=== PATIENT | female | born 1970 | race Caucasian/White ===

== ENCOUNTER 2017-04-06 14:59 | Inpatient (IN) | payer OTHER ==
[~2017-04-06] VITALS: Ht 162.6 cm; Wt 76.8 kg
[2017-04-06] MEDS: AMIODARONE HCL 150 MG/3 ML VIAL ONE ×2 (15:01→15:11)
[2017-04-06 15:02] VITALS: BP 142/75; PULSE 97; RESP 20; TEMP 98.2; O2SAT 98
[2017-04-06] MEDS ORDERED: MULTTAB67 PO (15:08)
[2017-04-06] MEDS ORDERED: AMIODARONE INJ 900 MG in D5W 500 ML (EXCEL BAG) 482 ML IV SCH (15:15)
[2017-04-06] MEDS ORDERED: AMIODARONE INJ 150 MG in DEXTROSE 5% IN WATER 100ML INJ 97 ML IV ONE ×2 (15:15)
[2017-04-06] MEDS ORDERED: AMIODARONE INJ 450 MG in DEXTROSE 5% IN WATE(EXCEL) INJ 241 ML IV SCH ×2 (15:30)
--- NOTE | 2017-04-06 15:46 | RADRPT ---
EXAM DATE/TIME: 04/06/2017 15:39 [place] COMPARISON: No previous studies available for comparison. INDICATIONS : Heart palpitations MEDICAL HISTORY : None. SURGICAL HISTORY : None. ENCOUNTER: Initial ACUITY: 1 day PAIN SCORE: 0/10 LOCATION: Bilateral chest FINDINGS: A single view of the chest demonstrates the lungs to be symmetrically aerated without evidence of mas s, infiltrate or effusion. The cardiomediastinal contours are unremarkable. Osseous structures are intact. CONCLUSION: No acute disease. Murray Stevens MD FACR on April 06, 2017 at 15:43 Board Certified Radiologist. This report was verified electronically.
[2017-04-06 15:47] VITALS: BP 119/84; PULSE 70; RESP 20; O2SAT 98
[2017-04-06] MEDS: SODIUM CHLOR 0.9% 1000 ML INJ 1,000 ML IV SCH (15:53)
[2017-04-06 16:01] LABS: AUTOMATED NEUTROPHIL # 4.9 TH/MM3 (1.8-7.7); BASOPHIL % 0.1 % (0.0-2.0); EOSINOPHIL % 0.2 % (0.0-4.0); HEMATOCRIT 38.3 % (35.0-46.0); HEMO FLAGS DIFF FINAL; LYMPH % 19.6 % (9.0-44.0); LYMPHOCYTE # 1.3 TH/MM3 (1.0-4.8); MEAN CELL VOLUME 91.2 FL (80.0-100.0); MEAN CORPUSCULAR HEMOGLOBIN 31.2 PG (27.0-34.0); MEAN CORPUSCULAR HGB CONC 34.2 % (32.0-36.0); MONO % 4.7 % (0.0-8.0); NEUT % 75.4 % (16.0-70.0); PLATELET COUNT 190 TH/MM3 (150-450); RED CELL DISTRIBUTION WIDTH 12.6 % (11.6-17.2); WHITE BLOOD COUNT 6.4 TH/MM3 (4.0-11.0)
[2017-04-06 16:14] LABS: ALT (GPT) 27 U/L (10-53); ANION GAP 7 MEQ/L (5-15); AST (GOT) 16 U/L (15-37); BICARBONATE 25.2 MEQ/L (21.0-32.0); BLOOD UREA NITROGEN 10 MG/DL (7-18); CHLORIDE 108 MEQ/L (98-107); GLOMERULAR FILTRATION RATE 110 ML/MIN (>89); POTASSIUM 3.6 MEQ/L (3.5-5.1); SODIUM (NA) 140 MEQ/L (136-145)
[2017-04-06 16:15] LABS: APTT (PATIENT) 25.8 SEC (24.3-30.1); PROTHROMBIN TIME - PATIENT 11.1 SEC (9.8-11.6)
[2017-04-06 16:23] LABS: ALKALINE PHOSPHATASE 50 U/L (45-117); TOTAL BILIRUBIN ADULT 0.6 MG/DL (0.2-1.0)
[2017-04-06 16:57] LABS: CREATINE KINASE 55 U/L (26-192)
[2017-04-06 17:14] VITALS: BP 126/82; PULSE 76; RESP 20; O2SAT 97
--- NOTE | 2017-04-06 17:18 | PD ---
HPI Chief Complaint: Cardiac Complaint Time Seen by Provider: 15:02 Travel History International Travel<30 days: No Contact w/Intl Traveler<30days: No Traveled to known affect area: No History of Present Illness HPI 46 year female complains of palpitation and dizziness. Patient states that the symptoms started about 2 weeks ago. Patient was seen by personal physician and referred to historical guide Dr. Kai Brown. Dr. Brown order an event recording for the patient. Dr. Brown has not seen the patient. Dr. Kai Brown was interrogating the event recording and advised to come to ED for evaluation. Patient states that she has intermittent palpitations and dizziness for the past 2 weeks however worse for the past 2 days. Patient states that she was very dizzy today associated with the palpation. EMS was called. Patient was brought to ED for evaluation. Patient had runs of V. tach on the way to ED. Patient states that she has severe dizziness with the V. tach episodes. Patient denies any thyroid problem. Patient denies any history of CAD in the past. PFSH Past Medical History ?: Not LMP: 03/29/17 Social History Alcohol Use: Yes Tobacco Use: No Substance Use: No Allergies-Medications (Allergen,Severity, Reaction): Coded Allergies: No Known Allergies (Unverified , 04/06/17) Reported Meds & Prescriptions Reported Meds & Active Scripts Active Reported Multiple Vitamin 1 Tab 1 Tab PO DAILY Review of Systems General / Constitutional: No: Fever Eyes: No: Visual changes HENT: Positive: Lightheadedness, No: Headaches Cardiovascular: Positive: Palpitations, No: Chest Pain or Discomfort Respiratory: No: Shortness of Breath Gastrointestinal: No: Abdominal Pain Genitourinary: No: Dysuria Musculoskeletal: No: Pain Skin: No Rash Neurologic: No: Weakness Psychiatric: No: Depression Endocrine: No: Polydipsia Hematologic/Lymphatic: No: Easy Bruising Physical Exam Narrative GENERAL: Well-nourished, well-developed patient. SKIN: Focused skin assessment warm/dry. HEAD: Normocephalic. EYES: No scleral icterus. No injection or drainage. NECK: Supple, trachea midline. No JVD or lymphadenopathy. CARDIOVASCULAR: Regular rate and rhythm without murmurs, gallops, or rubs. RESPIRATORY: Breath sounds equal bilaterally. No accessory muscle use. GASTROINTESTINAL: Abdomen soft, non-tender, nondistended. MUSCULOSKELETAL: No cyanosis, or edema. BACK: Nontender without obvious deformity. No CVA tenderness. Neurologic exam normal. Data Data Last Documented VS Vital Signs Date Time Temp Pulse Resp B/P Pulse Ox O2 Delivery O2 Flow Rate FiO2 04/06/17 15:47 98 04/06/17 15:47 70 20 119/84 04/06/17 15:02 98.2 Orders Amiodarone Inj (Cordarone Inj) (04/06/17 15:01) ^ Medication Alert (04/06/17 15:15) ^ Discontinue (04/06/17 15:15) Amiodarone Inj (Cordarone Inj) (04/06/17 15:15) Vital Signs (Adult) LISA.Q4H (04/06/17 15:15) Amiodarone Inj (Cordarone Inj) (04/06/17 15:30) Electrocardiogram (04/06/17 15:22) Complete Blood Count With Diff (04/06/17 15:22) Comprehensive Metabolic Panel (04/06/17 15:22) Creatine Kinase (Cpk) (04/06/17 15:22) Troponin I (04/06/17 15:22) Prothrombin Time / Inr (Pt) (04/06/17 15:22) Act Partial Throm Time (Ptt) (04/06/17 15:22) Thyroid Stimulating Hormone (04/06/17 15:22) Chest, Single Ap (04/06/17 15:22) Iv Access Insert/Monitor (04/06/17 15:22) Ecg Monitoring (04/06/17 15:22) Oximetry (04/06/17 15:22) Ed Urine Pregnancytest Poc (04/06/17 15:22) Sodium Chlor 0.9% 1000 Ml Inj (Ns 1000 M (04/06/17 15:30) Consult Cardiology (04/06/17 ) (Hub Use Only)Inp Phy Cons/Ref (04/06/17 ) Labs Laboratory Tests Test 04/06/17 15:00 White Blood Count 6.4 TH/MM3 Red Blood Count 4.20 MIL/MM3 Hemoglobin 13.1 GM/DL Hematocrit 38.3 % Mean Corpuscular Volume 91.2 FL Mean Corpuscular Hemoglobin 31.2 PG Mean Corpuscular Hemoglobin 34.2 % Concent Red Cell Distribution Width 12.6 % Platelet Count 190 TH/MM3 Mean Platelet Volume 8.6 FL Neutrophils (%) (Auto) 75.4 % Lymphocytes (%) (Auto) 19.6 % Monocytes (%) (Auto) 4.7 % Eosinophils (%) (Auto) 0.2 % Basophils (%) (Auto) 0.1 % Neutrophils # (Auto) 4.9 TH/MM3 Lymphocytes # (Auto) 1.3 TH/MM3 Monocytes # (Auto) 0.3 TH/MM3 Eosinophils # (Auto) 0.0 TH/MM3 Basophils # (Auto) 0.0 TH/MM3 CBC Comment DIFF FINAL Differential Comment Prothrombin Time 11.1 SEC Prothromb Time International 1.0 RATIO Ratio Activated Partial 25.8 SEC Thromboplast Time Sodium Level 140 MEQ/L Potassium Level 3.6 MEQ/L Chloride Level 108 MEQ/L Carbon Dioxide Level 25.2 MEQ/L Anion Gap 7 MEQ/L Blood Urea Nitrogen 10 MG/DL Creatinine 0.59 MG/DL Estimat Glomerular Filtration 110 ML/MIN Rate Random Glucose 95 MG/DL Calcium Level 8.4 MG/DL Total Bilirubin 0.6 MG/DL Aspartate Amino Transf 16 U/L (AST/SGOT) Alanine Aminotransferase 27 U/L (ALT/SGPT) Alkaline Phosphatase 50 U/L Total Creatine Kinase 55 U/L Troponin I LESS THAN 0.02 NG/ML Total Protein 6.8 GM/DL Albumin 3.7 GM/DL Thyroid Stimulating Hormone 0.759 uIU/ML [address] [place] [address] Medical Decision Making Medical Screen Exam Complete: Yes Emergency Medical Condition: Yes Interpretation(s) 1716 p.m. EKG shows sinus rhythm with frequent PVCs. Last Impressions Chest X-Ray 04/06/17 1522 Signed Impressions: Service Date/Time: Thursday, April 06, 2017 15:39 - CONCLUSION: No acute disease. Murray Stevens MD FACR 1716 p.m. CBC within normal limit. CMP within normal limit. Cardiac enzymes are normal. Differential Diagnosis Differential diagnoses including PVCs, V. tach Narrative Course 46-year-old female with palpitation and dizziness. Rhythm strip shows episodes of runs of V. tach. Patient has frequent PVCs on monitor. I spoke with Dr. Brown and Dr. Jackson. Advised amiodarone bolus and drip. Patient will be admitted to the medical service with cardiology consultation. Diagnosis Primary Impression: Ventricular tachycardia Admitting Information Admitting Physician Requests: Admit Naveen Miranda MD Apr 06, 2017 17:18
--- NOTE | 2017-04-06 17:44 | MB ---
cc: [facility] DATE OF CONSULTATION 04/06/17 DATE OF 1970 REASON FOR CONSULTATION Presyncope and VT. HISTORY OF PRESENT ILLNESS 46-year-old female with no significant past medical history, referred into the emergency department by national secretary because of episode of sustained VT. The patient reports recently she has been having this faint and dizziness spells that last seconds and minutes and they go away by themselves. She denies any chest pain, shortness of breath, nausea, vomiting or diarrhea. She was evaluated by PCP with unremarkable blood work as well as chest x-ray. She was referred to Dr. Brown for an event monitor. The event monitor was read today and apparently it showed episode of sustained ventricular tachycardia. The patient denies family history of congenital heart disease. She denies use of illicit drug use or caffeinated medications or any new medications. She denies chest pain, SOB, PND, recent fever, chills, nausea, vomiting or diarrhea. REVIEW OF SYSTEMS Negative except for what is mentioned in the HPI. PAST MEDICAL HISTORY None. PAST SURGICAL HISTORY None. ALLERGIES NO KNOWN DRUG ALLERGIES. FAMILY HISTORY No cardiovascular disease. MEDICATIONS Home medications none. SOCIAL HISTORY Report social alcohol use. Denies smoking or illicit drug use. PHYSICAL EXAMINATION VITAL SIGNS: Temperature 98, respiratory rate 20, heart rate 70, blood pressure 119/84, O2 sats 98% on room air. GENERAL: Generally she is awake, alert, oriented x3 in no acute distress. NECK: No JVD, no carotid bruits. HEART: Regular rate and rhythm. Occasional premature ventricular contractions. No murmurs, rubs or gallops. LUNGS: Clear to auscultation bilaterally. No wheezes or rhonchi or rales. ABDOMEN: Soft, nontender, nondistended. Positive bowel sounds. EXTREMITIES: No cyanosis or edema. Pulses throughout. DATA CBC hemoglobin 13, hematocrit of 38, platelet count 190. Chemistries, sodium 140, potassium 3.6, BUN 10, creatinine 0.59, chloride 108, calcium 8.4. Troponin less than 0.02. TSH 0.7 and INR 1. C Chest x-ray unremarkable. EKG sinus rhythm with occasional PVCs. There is also a telemetry strip showing episodes of nonsustained VT, PVC's and salvos ASSESSMENT/PLAN 46-year-old female with no significant cardiovascular history presenting with episodes of sustained VT. She remains afebrile, hemodynamically stable with no cardiovascular complaints. Denies any chest pain, shortness of breath or syncope. She has never had a cardiac workup in the past. She reports having a lot of stress at home because they are building a new house. Given the patient' s new episode of ventricular tachycardia I think it is reasonable to admit to the hospital for further evaluation. The patient was given amiodarone in the emergency department, I would rather start beta-blockers, metoprolol 25 mg p.o. b.i.d and discontinue amiodarone. She should get a 2-D echocardiogram to assess for any structural abnormalities of the heart cycle, cardiac enzymes x3 and a Lexiscan stress test to assess for ischemia. If ischemic workup unremarkable the patient will be consulted to electrophysiology for recommendations. RECOMMENDATIONS 1. Start metoprolol 25 milligrams p.o. b.i.d. 2. Get 2-D echocardiogram. 3. Lexiscan stress test. 4. Avoid electrolyte abnormalities. Thank you for the opportunity to take part in the care of this patient. Further therapy to be determined. Case discussed with Dr. Brown MD BK Zavaleta/ROSENDO /5:12 PM /5:32 PM [facility]
[2017-04-06] MEDS ORDERED: NALOXONE HCL 0.4 MG/ML AMP IV PRN (19:00)
[2017-04-06] MEDS ORDERED: MAGNESIUM HYDROXIDE SUSP 30 ML CUP PO PRN (19:00)
[2017-04-06] MEDS ORDERED: ONDANSETRON HCL 4 MG/2 ML VIAL IVP PRN (19:00)
[2017-04-06] MEDS ORDERED: SODIUM CHLORIDE 0.9% FLUSH 10 ML FLUSH IV FLUSH PRN (19:00)
[2017-04-06] MEDS ORDERED: NITROGLYCERIN 0.4 MG SL 25 TABS/BTL SL PRN (19:00)
[2017-04-06 19:20] VITALS: BP 120/67; PULSE 70; RESP 16; O2SAT 100
[2017-04-06 21:41] VITALS: BP 114/55
[2017-04-06] MEDS: ENOXAPARIN SODIUM 30 MG/0.3 ML SYRINGE SQ SCH (22:48)
[2017-04-06] MEDS: SODIUM CHLORIDE 0.9% FLUSH 10 ML FLUSH IV FLUSH SCH (22:49)
[2017-04-06] MEDS: METOPROLOL SUCCINATE 25 MG EXTENDED RELEASE TAB PO SCH (22:51)
[2017-04-06] MEDS: ALPRAZolam 0.25 MG TAB PO PRN (23:26)
[2017-04-07] VITALS (24 sets, daily range): BP systolic 100–130; BP diastolic 65–88; PULSE 58–128; RESP 18–20; TEMP 98–98.8; O2SAT 98–100
[2017-04-07] MEDS: SODIUM CHLOR 0.9% 1000 ML INJ 1,000 ML IV SCH ×3 (01:30→20:32)
[2017-04-07 02:58] LABS: CREATINE KINASE 38 U/L (26-192)
[2017-04-07 07:01] LABS: ANION GAP 7 MEQ/L (5-15); BICARBONATE 25.8 MEQ/L (21.0-32.0); BLOOD UREA NITROGEN 7 MG/DL (7-18); CHLORIDE 109 MEQ/L (98-107); GLOMERULAR FILTRATION RATE 117 ML/MIN (>89); POTASSIUM 3.4 MEQ/L (3.5-5.1); SODIUM (NA) 142 MEQ/L (136-145)
[2017-04-07 07:10] LABS: CREATINE KINASE 128 U/L (26-192); HDL CHOLESTEROL 59.9 MG/DL (40.0-60.0); LDL CHOLESTEROL 87 MG/DL (0-99)
[2017-04-07 07:19] LABS: AUTOMATED NEUTROPHIL # 2.8 TH/MM3 (1.8-7.7); BASOPHIL % 0.2 % (0.0-2.0); EOSINOPHIL # 0.1 TH/MM3 (0-0.4); EOSINOPHIL % 1.2 % (0.0-4.0); HEMO FLAGS DIFF FINAL; LYMPH % 33.5 % (9.0-44.0); LYMPHOCYTE # 1.6 TH/MM3 (1.0-4.8); MEAN CELL VOLUME 90.9 FL (80.0-100.0); MEAN CORPUSCULAR HEMOGLOBIN 31.2 PG (27.0-34.0); MEAN CORPUSCULAR HGB CONC 34.3 % (32.0-36.0); MONO % 5.4 % (0.0-8.0); NEUT % 59.7 % (16.0-70.0); PLATELET COUNT 158 TH/MM3 (150-450); RED BLOOD COUNT 3.74 MIL/MM3 (4.00-5.30); RED CELL DISTRIBUTION WIDTH 12.6 % (11.6-17.2); WHITE BLOOD COUNT 4.7 TH/MM3 (4.0-11.0)
[2017-04-07] MEDS: SODIUM CHLORIDE 0.9% FLUSH 10 ML FLUSH IV FLUSH SCH ×2 (08:40→20:32)
[2017-04-07] MEDS: METOPROLOL SUCCINATE 25 MG EXTENDED RELEASE TAB PO SCH (08:40)
[2017-04-07] MEDS ORDERED: ASPIRIN 325 MG TAB PO SCH (09:00)
--- NOTE | 2017-04-07 10:29 | PD.CARD.PN ---
Subjective Subjective Remarks no complaints no overnight events telemetry several episodes of VT and sinus tachycardia Objective Medications Current Medications Medications (Trade) Dose Ordered Sig/Charline Route Start Time Stop Time Status Last Admin Amiodarone HCl 450 mg/Dextrose 250 ml @ 0 mls/hr CONTINUOUS IV 04/06/17 15:30 04/06/17 15:53 (NS 1000 ml Inj) 1,000 ml @ 100 mls/hr Q10H IV 04/06/17 15:30 04/06/17 15:53 (NS Flush) 2 ml UNSCH PRN IV FLUSH 04/06/17 19:00 (NS Flush) 2 ml BID IV FLUSH 04/06/17 21:00 04/07/17 08:40 (Tylenol) 650 mg Q4H PRN PO 04/06/17 19:00 (Zofran Inj) 4 mg Q6H PRN IVP 04/06/17 19:00 (Restoril) 15 mg HS PRN PO 04/06/17 19:00 (Lovenox Inj) 30 mg Q24H SQ 04/06/17 20:00 04/06/17 22:48 (Narcan Inj) 0.4 mg UNSCH PRN IV 04/06/17 19:00 (Milk Of Magnesia Liq) 30 ml Q12H PRN PO 04/06/17 19:00 (Toprol Xl) 25 mg BID PO 04/06/17 21:00 04/07/17 08:40 (Aspirin) 325 mg DAILY PO 04/07/17 09:00 04/07/17 08:40 (Nitrostat Sl) 0.4 mg Q5M PRN SL 04/06/17 19:00 (Xanax) 0.25 mg TID PRN PO 04/06/17 19:00 04/06/17 23:26 Vital Signs / I&O Vital Signs Date Time Temp Pulse Resp B/P Pulse Ox O2 Delivery O2 Flow Rate FiO2 04/07/17 07:01 58 04/07/17 06:00 65 04/07/17 05:00 67 04/07/17 04:00 Room Air 04/07/17 04:00 60 04/07/17 04:00 98.2 60 18 100/65 99 04/07/17 03:00 64 04/07/17 02:00 61 04/07/17 01:00 62 04/07/17 00:00 68 04/07/17 00:00 98.0 68 20 130/81 99 04/06/17 21:41 65 17 114/55 100 Nasal Cannula 1 04/06/17 19:20 70 16 120/67 100 Room Air 04/06/17 17:14 76 20 126/82 97 04/06/17 15:47 98 04/06/17 15:47 70 20 119/84 04/06/17 15:02 98.2 97 20 142/75 98 I/O 04/06/17 04/06/17 04/06/17 04/07/17 04/07/17 04/07/17 07:00 15:00 23:00 07:00 15:00 23:00 Intake Total 910 ml Output Total 600 ml Balance 310 ml Intake Oral 240 ml IV Total 670 ml Output Urine Total 600 ml # Bowel Movements 0 Physical Exam GENERAL: Well-nourished, well-developed patient. SKIN: Warm and dry. HEAD: Normocephalic. EYES: No scleral icterus. No injection or drainage. NECK: Supple, trachea midline. No JVD or lymphadenopathy. CARDIOVASCULAR: Regular rate and rhythm without murmurs, gallops, or rubs. RESPIRATORY: Breath sounds equal bilaterally. No accessory muscle use. GASTROINTESTINAL: Abdomen soft, non-tender, nondistended. EXTREMITIES: No cyanosis, or edema. NEUROLOGICAL: Awake, alert, and oriented x 3. Non-focal. Laboratory Laboratory Tests Test 04/06/17 04/07/17 04/07/17 15:00 01:16 05:45 White Blood Count 6.4 TH/MM3 4.7 TH/MM3 Red Blood Count 4.20 MIL/MM3 3.74 MIL/MM3 Hemoglobin 13.1 GM/DL 11.7 GM/DL Hematocrit 38.3 % 34.0 % Mean Corpuscular Volume 91.2 FL 90.9 FL Mean Corpuscular Hemoglobin 31.2 PG 31.2 PG Mean Corpuscular Hemoglobin 34.2 % 34.3 % Concent Red Cell Distribution Width 12.6 % 12.6 % Platelet Count 190 TH/MM3 158 TH/MM3 Mean Platelet Volume 8.6 FL 8.7 FL Neutrophils (%) (Auto) 75.4 % 59.7 % Lymphocytes (%) (Auto) 19.6 % 33.5 % Monocytes (%) (Auto) 4.7 % 5.4 % Eosinophils (%) (Auto) 0.2 % 1.2 % Basophils (%) (Auto) 0.1 % 0.2 % Neutrophils # (Auto) 4.9 TH/MM3 2.8 TH/MM3 Lymphocytes # (Auto) 1.3 TH/MM3 1.6 TH/MM3 Monocytes # (Auto) 0.3 TH/MM3 0.3 TH/MM3 Eosinophils # (Auto) 0.0 TH/MM3 0.1 TH/MM3 Basophils # (Auto) 0.0 TH/MM3 0.0 TH/MM3 CBC Comment DIFF FINAL DIFF FINAL Differential Comment Prothrombin Time 11.1 SEC Prothromb Time International 1.0 RATIO Ratio Activated Partial 25.8 SEC Thromboplast Time Sodium Level 140 MEQ/L 142 MEQ/L Potassium Level 3.6 MEQ/L 3.4 MEQ/L Chloride Level 108 MEQ/L 109 MEQ/L Carbon Dioxide Level 25.2 MEQ/L 25.8 MEQ/L Anion Gap 7 MEQ/L 7 MEQ/L Blood Urea Nitrogen 10 MG/DL 7 MG/DL Creatinine 0.59 MG/DL 0.56 MG/DL Estimat Glomerular Filtration 110 ML/MIN 117 ML/MIN Rate Random Glucose 95 MG/DL 81 MG/DL Calcium Level 8.4 MG/DL 7.9 MG/DL Total Bilirubin 0.6 MG/DL Aspartate Amino Transf 16 U/L (AST/SGOT) Alanine Aminotransferase 27 U/L (ALT/SGPT) Alkaline Phosphatase 50 U/L Total Creatine Kinase 55 U/L 38 U/L 128 U/L Troponin I LESS THAN 0.02 LESS THAN 0.02 LESS THAN 0.02 NG/ML NG/ML NG/ML Total Protein 6.8 GM/DL Albumin 3.7 GM/DL Free Thyroxine 1.46 NG/DL Thyroid Stimulating Hormone 0.759 uIU/ML 3rd Gen Triglycerides Level 75 MG/DL Cholesterol Level 162 MG/DL LDL Cholesterol 87 MG/DL HDL Cholesterol 59.9 MG/DL Cholesterol/HDL Ratio 2.70 RATIO Imaging Last Impressions Chest X-Ray 04/06/17 1522 Signed Impressions: Service Date/Time: Thursday, April 06, 2017 15:39 - CONCLUSION: No acute disease. Murray Stevens MD FACR Assessment and Plan Problem List: (1) Ventricular tachycardia Assessment and Plan: Lexiscan Stress test today Increase Lopressor to 50mg PO BID D/C Jerod Jovel MD Apr 07, 2017 10:29
[2017-04-07 10:34] LABS: BHCG SCREEN QUALITATIVE 1 MIU/ML (0-5)
--- NOTE | 2017-04-07 11:23 | HHI.HP ---
HPI Service [facility] Hospitalists Primary Care Physician Unknown Admission Diagnosis ventricular tachycardia Chief Complaint: abnormal holter monitor Travel History International Travel<30 Days: No Contact w/Intl Traveler <30 Da: No Traveled to Known Affected Are: No History of Present Illness Patient is a pleasant 46-year-old female with no significant past medical history. Patient reports that over the last few weeks she has been suffering from dizzy spells lasting a few minutes, self limiting. These episodes of dizziness are associated with palpitations. Patient was undergoing workup with cardiology, Dr. Kai Brown. Patient had an outpatient event monitor which was interpreted 04/06/[address] Brown. Apparently the event monitor showed episodes of sustained ventricular tachycardia. Patient denies chest pain, shortness of breath, nausea or vomiting, or diaphoresis. There is no family history of congenital heart disease. Patient denies use of illicit street drugs or substantial caffeine. Patient directed by Dr. Brown to come to the ER. Patient was started on amiodarone drip. Patient started on metoprolol 25 mg by mouth twice a day which has now been increased to 50 mg twice a day by cardiology. Patient had serial cardiac enzymes which were normal. Patient had serial EKGs which did not show acute ischemic changes. Review of Systems Constitutional: DENIES: Diaphoretic episodes, Fatigue, Fever, Weight gain, Weight loss, Chills, Dizziness, Change in appetite, Night Sweats Endocrine: DENIES: Abnorml menstrual pattern, Heat/cold intolerance, Polydipsia , Polyuria, Polyphagia Eyes: DENIES: Blurred vision, Diplopia, Eye inflammation, Eye pain, Vision loss , Photosensitivity, Double Vision Ears, nose, mouth, throat: DENIES: Tinnitus, Hearing loss, Vertigo, Nasal discharge, Oral lesions, Throat pain, Hoarseness, Ear Pain, Running Nose, Epistaxis, Sinus Pain, Toothache, Odynophagia Respiratory: DENIES: Apneas, Cough, Snoring, Wheezing, Hemoptysis, Sputum production, Shortness of breath Cardiovascular: COMPLAINS OF: Syncope, DENIES: Chest pain, Palpitations, Dyspnea on Exertion, PND, Lower Extremity Edema, Orthopnea, Claudication Gastrointestinal: DENIES: Abdominal pain, Black stools, Bloody stools, BRB per rectum, Constipation, Diarrhea, GERD, Nausea, Reflux, Vomiting, Difficulty Swallowing, Anorexia Genitourinary: DENIES: Dysmenorrhea, Dyspareunia, Sexual dysfunction, Urinary frequency, Urinary incontinence, Urgency, Hematuria, Dysuria, Nocturia Musculoskeletal: DENIES: Joint pain, Muscle aches, Stiffness, Joint Swelling, Back pain, Neck pain Integumentary: DENIES: Abnormal pigmentation, Pruritus, Rash, Nail changes, Breast masses, Breast skin changes, Nipple discharge Hematologic/lymphatic: DENIES: Bruising, Lymphadenopathy Immunologic/allergic: DENIES: Eczema, Urticaria Neurologic: DENIES: Abnormal gait, Headache, Localized weakness, Paresthesias, Seizures, Speech Problems, Tremor, Poor Balance Psychiatric: DENIES: Anxiety, Confusion, Mood changes, Depression, Hallucinations, Agitation, Suicidal Ideation, Homicidal Ideation, Delusions, History of Bipolar, History of Schizophrenia Past Family Social History Past Medical History 1) dizziness, see history of present illness 2) abnormal event monitor, see history of present illness Past Surgical History None Reported Medications None Allergies: Coded Allergies: No Known Allergies (Unverified , 04/06/17) Family History Noncontributory Social History - Occasional alcoholic beverage - No tobacco use - No illicit street drugs Physical Exam Vital Signs Vital Signs Date Time Temp Pulse Resp B/P Pulse Ox O2 Delivery O2 Flow Rate FiO2 04/07/17 07:01 58 04/07/17 06:00 65 04/07/17 05:00 67 04/07/17 04:00 Room Air 04/07/17 04:00 60 04/07/17 04:00 98.2 60 18 100/65 99 04/07/17 03:00 64 04/07/17 02:00 61 04/07/17 01:00 62 04/07/17 00:00 68 04/07/17 00:00 98.0 68 20 130/81 99 04/06/17 21:41 65 17 114/55 100 Nasal Cannula 1 04/06/17 19:20 70 16 120/67 100 Room Air 04/06/17 17:14 76 20 126/82 97 04/06/17 15:47 98 04/06/17 15:47 70 20 119/84 04/06/17 15:02 98.2 97 20 142/75 98 Physical Exam GENERAL: This is a well-nourished, well-developed patient, in no apparent distress. SKIN: No rashes, ecchymoses or lesions. Cool and dry. HEAD: Atraumatic. Normocephalic. No temporal or scalp tenderness. EYES: Pupils equal round and reactive. Extraocular motions intact. No scleral icterus. No injection or drainage. ENT: Nose without bleeding, purulent drainage or septal hematoma. Throat without erythema, tonsillar hypertrophy or exudate. Uvula midline. Airway patent. NECK: Trachea midline. No JVD or lymphadenopathy. Supple, nontender, no meningeal signs. CARDIOVASCULAR: Regular rate and rhythm without murmurs, gallops, or rubs. RESPIRATORY: Clear to auscultation. Breath sounds equal bilaterally. No wheezes , rales, or rhonchi. GASTROINTESTINAL: Abdomen soft, non-tender, nondistended. No hepato-splenomegaly , or palpable masses. No guarding. MUSCULOSKELETAL: Extremities without clubbing, cyanosis, or edema. No joint tenderness, effusion, or edema noted. No calf tenderness. Negative Homans sign bilaterally. NEUROLOGICAL: Awake and alert. Cranial nerves II through XII intact. Motor and sensory grossly within normal limits. Five out of 5 muscle strength in all muscle groups. Normal speech. Laboratory Laboratory Tests Test 04/06/17 04/07/17 04/07/17 15:00 01:16 05:45 White Blood Count 6.4 4.7 Red Blood Count 4.20 3.74 Hemoglobin 13.1 11.7 Hematocrit 38.3 34.0 Mean Corpuscular Volume 91.2 90.9 Mean Corpuscular Hemoglobin 31.2 31.2 Mean Corpuscular Hemoglobin 34.2 34.3 Concent Red Cell Distribution Width 12.6 12.6 Platelet Count 190 158 Mean Platelet Volume 8.6 8.7 Neutrophils (%) (Auto) 75.4 59.7 Lymphocytes (%) (Auto) 19.6 33.5 Monocytes (%) (Auto) 4.7 5.4 Eosinophils (%) (Auto) 0.2 1.2 Basophils (%) (Auto) 0.1 0.2 Neutrophils # (Auto) 4.9 2.8 Lymphocytes # (Auto) 1.3 1.6 Monocytes # (Auto) 0.3 0.3 Eosinophils # (Auto) 0.0 0.1 Basophils # (Auto) 0.0 0.0 CBC Comment DIFF FINAL DIFF FINAL Differential Comment Prothrombin Time 11.1 Prothromb Time International 1.0 Ratio Activated Partial 25.8 Thromboplast Time Sodium Level 140 142 Potassium Level 3.6 3.4 Chloride Level 108 109 Carbon Dioxide Level 25.2 25.8 Anion Gap 7 7 Blood Urea Nitrogen 10 7 Creatinine 0.59 0.56 Estimat Glomerular Filtration 110 117 Rate Random Glucose 95 81 Calcium Level 8.4 7.9 Total Bilirubin 0.6 Aspartate Amino Transf 16 (AST/SGOT) Alanine Aminotransferase 27 (ALT/SGPT) Alkaline Phosphatase 50 Total Creatine Kinase 55 38 128 Troponin I LESS THAN 0.02 LESS THAN 0.02 LESS THAN 0.02 Total Protein 6.8 Albumin 3.7 Free Thyroxine 1.46 Thyroid Stimulating Hormone 0.759 3rd Gen Triglycerides Level 75 Cholesterol Level 162 LDL Cholesterol 87 HDL Cholesterol 59.9 Cholesterol/HDL Ratio 2.70 Beta HCG, Qualitative 1 Result Diagram: 04/07/17 0545 04/07/17 0545 Imaging Last Impressions Chest X-Ray 04/06/17 1522 Signed Impressions: Service Date/Time: Thursday, April 06, 2017 15:39 - CONCLUSION: No acute disease. Murray Stevens MD FACR Septic Shock Reassessment Heart: Regular rate and rhythm Lungs: Clear Skin: Warm Peripheral Pulses: Bounding Right Radial Bounding Left Radial Bounding Right Popliteal Bounding Left Popliteal Bounding Right Dorsalis Pedis Bounding Left Dorsalis Pedis Bounding Right Posterior Tibial Bounding Left Posterior Tibial Capillary Refill: Brisk Assessment and Plan Problem List: (1) Ventricular tachycardia Status: Acute Plan: - Comanagement with cardiology - Patient has been experiencing self-limiting episodes of dizziness - Patient denies chest pain, palpitations, shortness of breath, nausea vomiting , diaphoresis - Outpatient event monitor interpreted by cardiology, Dr. Kai Brown cardiology showed sustained ventricular tachycardia. Patient directed to the emergency room. - Patient initially placed on amiodarone drip, this has been stopped per cardiology - Metoprolol, initially 25 mg by mouth twice a day, now increased to 50 mg by mouth twice a day - Serial cardiac enzymes were negative - Serial EKGs did not show any acute ischemic changes - Thyroid functions are within normal limits - Echocardiogram is pending - Lexiscan ordered by cardiology - Aspirin 81 mg PO daily Physician Certification 2 Midnight Certification Type: Admission for Inpatient Services Order for Inpatient Services The services are ordered in accordance with Medicare regulations or non- Medicare payer requirements, as applicable. In the case of services not specified as inpatient-only, they are appropriately provided as inpatient services in accordance with the 2-midnight benchmark. Estimated LOS (days): 3 3 days is the estimated time the patient will need to remain in the hospital, assuming treatment plan goals are met and no additional complications. Post-Hospital Plan: Home Curtis Irby DO Apr 07, 2017 11:23
[2017-04-07] MEDS ORDERED: POTASSIUM CHLORIDE 20 MEQ CONTROLLED RELEASE TAB PO ONE (12:00)
[2017-04-07] MEDS ORDERED: METOPROLOL SUCCINATE 25 MG EXTENDED RELEASE TAB PO ONE (12:00)
--- NOTE | 2017-04-07 12:01 | EKG ---
Date Performed: 04/07/2017 Time Performed: 05:54:30 PTAGE: 46 years EKG: Sinus rhythm Since previous tracing, no significant change noted Normal ECG PREVIOUS TRACING : 04/06/2017 23.36 DOCTOR: Kai Brown Interpretating Date/Time 04/07/2017 12:00:58
--- NOTE | 2017-04-07 12:01 | EKG ---
Date Performed: 04/06/2017 Time Performed: 23:36:00 PTAGE: 46 years EKG: Sinus rhythm Septal T wave changes are nonspecific Since previous tracing, no significant change noted Borderline ECG PREVIOUS TRACING : 04/06/2017 15.04 DOCTOR: Kai Brown Interpretating Date/Time 04/07/2017 12:01:10
--- NOTE | 2017-04-07 12:19 | EKG ---
Date Performed: 04/06/2017 Time Performed: 15:04:48 PTAGE: 46 years EKG: Sinus rhythm WITH FREQUENT VENTRICULAR PREMATURE COMPLEXES POSSIBLE LEFT ATRIAL ENLARGEMENT ABNORMAL RHYTHM ECG NO PREVIOUS TRACING DOCTOR: Kai Brown Interpretating Date/Time 04/07/2017 12:16:08
[2017-04-07] MEDS ORDERED: REGADENOSON INJ 0.4 MG/5 ML SYR ONE (12:54)
--- NOTE | 2017-04-07 14:36 | RADRPT ---
EXAM DATE/TIME: 04/07/2017 12:28 [place] COMPARISON: No previous studies available for comparison. INDICATIONS : Sustained ventricular tachycardia. Coronary atherosclerosis. DOSE: 25.8 mCi Tc99m Myoview at stress. 8.2 mCi Tc99m Myoview at rest. 0.4 mg Lexiscan STRESS SYMPTOMS: Short of breath with headache. EJECTION FRACTION: 45% MEDICAL HISTORY : None SURGICAL HISTORY : None. ENCOUNTER: Initial ACUITY: 1 day PAIN SCALE: 3/10 LOCATION: Bilateral chest TECHNIQUE: The patient underwent pharmacologic stress with infusion of prescribed dose. Continuous ECG tracing was monitored during stress. Gated SPECT imaging was performed after stress and conventional SPECT i maging was performed at rest. The examination was performed on a SPECT/CT scanner, both attenuation and non-corrected datasets were reviewed. FINDINGS: DISTRIBUTION: The maximum perfused segment at stress is in the anterior wall. PERFUSION STUDY: The pattern of perfusion at stress is within normal limits. GATED STUDY: There is intact wall motion and thickening without hypokinetic or dyskinetic segments. CONCLUSION: No areas of ischemia are seen. RISK CATEGORY: Low (<1% Annual Mortality Rate) Dimitry Renee MD on April 07, 2017 at 14:32 Board Certified Radiologist. This report was verified electronically.
--- NOTE | 2017-04-07 14:57 | ECHRPT ---
Indication: Atrial fibrillation/flutter CONCLUSIONS Mildly dilated left ventricle. Wall thickness is normal. The left ventricular systolic function is normal with an estimated ejection fraction in the range of 60-65%. No regional wall motion abnormalities are present. BP: 100 / 65 HR: 68 Rhythm: Sinus MEASUREMENTS (Male / Female) Normal Values Technical Quality:Good 2D ECHO LV Diastolic Diameter PLAX 5.8 cm 4.2 - 5.9 / 3.9 - 5.3 cm LV Systolic Diameter PLAX 4.2 cm IVS Diastolic Thickness 0.8 cm 0.6 - 1.0 / 0.6 - 0.9 cm LVPW Diastolic Thickness 0.8 cm 0.6 - 1.0 / 0.6 - 0.9 cm LV Relative Wall Thickness 0.3 LVOT Diameter 2.1 cm Aortic Root Diameter 2.9 cm LA Systolic Diameter LX 3.3 cm 3.0 - 4.0 / 2.7 - 3.8 cm M-MODE AV Cusp Separation MM 2.2 cm DOPPLER AV Peak Velocity 148.0 cm/s AV Peak Gradient 8.8 mmHg AV Mean Gradient 5.0 mmHg AV Velocity Time Integral 31.6 cm LVOT Peak Velocity 115.0 cm/s LVOT Peak Gradient 5.3 mmHg LVOT Velocity Time Integral 23.8 cm LVOT Cardiac Index 3014.9 cm/minm AV Area Cont Eq vti 2.6 cm AV Area Cont Eq pk 2.7 cm Mitral E Point Velocity 90.3 cm/s Mitral A Point Velocity 55.8 cm/s Mitral E to A Ratio 1.6 LV E' Lateral Velocity 11.7 cm/s Mitral E to LV E' Lateral Ratio 7.7 LV E' Septal Velocity 8.5 cm/s Mitral E to LV E' Septal Ratio 10.6 TR Peak Velocity 259.0 cm/s TR Peak Gradient 26.8 mmHg PV Peak Velocity 29.3 cm/s PV Peak Gradient 0.3 mmHg FINDINGS LEFT VENTRICLE Mildly dilated left ventricle. Wall thickness is normal. The left ventricular systolic function is normal with an estimated ejection fraction in the range of 60-65%. No regional wall motion abnormalities are present. RIGHT VENTRICLE Normal right ventricular size and systolic function. LEFT ATRIUM The left atrial size is normal. RIGHT ATRIUM The right atrial size is normal. ATRIAL SEPTUM No atrial level shunt is demonstrated by color flow Doppler interrogation. AORTA The aortic root and proximal ascending aorta are not well visualized. MITRAL VALVE Structurally normal mitral valve. Trace mitral valve regurgitation. AORTIC VALVE Trileaflet aortic valve. No aortic valve regurgitation. TRICUSPID VALVE Structurally normal tricuspid valve. There is mild tricuspid valve regurgitation. Normal estimated pulmonary pressures. PULMONARY VALVE No pulmonary valve regurgitation or stenosis. PERICARDIUM No pericardial effusion. Ilia Jackson MD (Electronically Signed) Final Date:07 April 2017 14:56
[2017-04-07] MEDS: ACETAMINOPHEN 325 MG TAB PO PRN (17:19)
[2017-04-07] MEDS: METOPROLOL SUCCINATE 50 MG EXTENDED RELEASE TAB PO SCH (20:25)
[2017-04-07] MEDS: ALPRAZolam 0.25 MG TAB PO PRN (20:25)
[2017-04-07] MEDS: ENOXAPARIN SODIUM 30 MG/0.3 ML SYRINGE SQ SCH (20:25)
[2017-04-07] MEDS: TEMAZEPAM 15 MG CAP PO PRN (23:16)
[2017-04-08] VITALS (25 sets, daily range): BP systolic 110–128; BP diastolic 69–82; PULSE 54–90; RESP 18; TEMP 98–98.7; O2SAT 97–100
[2017-04-08 05:32] LABS: BICARBONATE 25.9 MEQ/L (21.0-32.0); MAGNESIUM 2.1 MG/DL (1.5-2.5); POTASSIUM 3.5 MEQ/L (3.5-5.1)
[2017-04-08] MEDS: SODIUM CHLORIDE 0.9% FLUSH 10 ML FLUSH IV FLUSH SCH ×2 (09:00→21:15)
--- NOTE | 2017-04-08 09:18 | HHI.PR ---
Subjective Remarks No new complaints. Pt denies chest pain, palpitations, or dizziness. Objective Vitals Vital Signs Date Time Temp Pulse Resp B/P Pulse Ox O2 Delivery O2 Flow Rate FiO2 04/08/17 07:01 54 04/08/17 06:00 59 04/08/17 05:00 57 04/08/17 04:00 56 04/08/17 04:00 Room Air 04/08/17 04:00 98.0 56 18 110/69 97 04/08/17 03:00 57 04/08/17 02:00 55 04/08/17 01:00 60 04/08/17 00:00 Room Air 04/08/17 00:00 98.3 58 18 128/81 97 04/08/17 00:00 58 04/07/17 23:00 66 04/07/17 22:00 64 04/07/17 21:00 68 04/07/17 20:00 Room Air 04/07/17 20:00 62 04/07/17 20:00 98.2 62 20 117/72 98 04/07/17 18:01 60 04/07/17 17:00 66 04/07/17 16:01 80 04/07/17 15:57 98.8 79 18 126/88 99 04/07/17 15:00 87 04/07/17 12:00 76 04/07/17 11:15 98.4 76 18 120/74 100 04/07/17 11:00 76 04/07/17 10:00 70 04/07/17 04/07/17 04/08/17 15:00 23:00 07:00 Intake Total 1720 ml 1220 ml Output Total 1900 ml 1100 ml Balance -180 ml 120 ml Intake Oral 720 ml 720 ml IV Total 1000 ml 500 ml Output Urine Total 1900 ml 1100 ml # Voids 4 # Bowel Movements 0 0 Result Diagram: 04/07/17 0545 04/08/17 0410 Imaging Last Impressions Chest X-Ray 04/06/17 1522 Signed Impressions: Service Date/Time: Thursday, April 06, 2017 15:39 - CONCLUSION: No acute disease. Murray Stevens MD FACR Objective Remarks GENERAL: This is a well-nourished, well-developed patient, in no apparent distress. CARDIOVASCULAR: Regular rate and rhythm without murmurs, gallops, or rubs. RESPIRATORY: Clear to auscultation. Breath sounds equal bilaterally. No wheezes , rales, or rhonchi. GASTROINTESTINAL: Abdomen soft, non-tender, nondistended. Normal active bowel sounds MUSCULOSKELETAL: Extremities without clubbing, cyanosis, or edema. NEURO: Alert & Oriented x4 to person, place, time, situation. Moves all ext x4 A/P Problem List: (1) Ventricular tachycardia Status: Acute Plan: - Comanagement with cardiology - Patient has been experiencing self-limiting episodes of dizziness associated with palpitations - Outpatient event monitor interpreted by cardiology, Dr. Kai Brown cardiology showed sustained ventricular tachycardia. Patient directed to the emergency room. - Patient initially placed on amiodarone (04/06 - 04/08/17) - Metoprolol, initially 25 mg PO twice a day, increased to 50 mg PO BID (04/07) - Serial cardiac enzymes were negative - Serial EKGs did not show any acute ischemic changes - Thyroid functions are within normal limits - Echocardiogram --> EF 60-65% - Lexiscan (04/07/17) --> negative study - Telemetry reviewed NO sustained VT overnight or this morning - pt denies dizziness or palpitations - Aspirin 81 mg PO daily - Case d/w Cardiology, Dr. Branham, 04/08/17 - Consult Curtis Franklin DO Apr 08, 2017 09:18
[2017-04-08] MEDS: ASPIRIN EC 81 MG TABEC PO SCH (09:40)
[2017-04-08] MEDS: METOPROLOL SUCCINATE 50 MG EXTENDED RELEASE TAB PO SCH ×2 (09:40→21:14)
[2017-04-08] MEDS: ACETAMINOPHEN 325 MG TAB PO PRN (09:40)
--- NOTE | 2017-04-08 10:09 | PD.CARD.PN ---
Subjective Subjective Remarks no complaints no CV complaints Objective Medications Current Medications Medications (Trade) Dose Ordered Sig/Charline Route Start Time Stop Time Status Last Admin (NS 1000 ml Inj) 1,000 ml @ 100 mls/hr Q10H IV 04/06/17 15:30 04/07/17 20:32 (NS Flush) 2 ml UNSCH PRN IV FLUSH 04/06/17 19:00 (NS Flush) 2 ml BID IV FLUSH 04/06/17 21:00 04/08/17 09:00 (Tylenol) 650 mg Q4H PRN PO 04/06/17 19:00 04/08/17 09:40 (Zofran Inj) 4 mg Q6H PRN IVP 04/06/17 19:00 (Restoril) 15 mg HS PRN PO 04/06/17 19:00 04/07/17 23:16 (Lovenox Inj) 30 mg Q24H SQ 04/06/17 20:00 04/07/17 20:25 (Narcan Inj) 0.4 mg UNSCH PRN IV 04/06/17 19:00 (Milk Of Magnesia Liq) 30 ml Q12H PRN PO 04/06/17 19:00 (Nitrostat Sl) 0.4 mg Q5M PRN SL 04/06/17 19:00 (Xanax) 0.25 mg TID PRN PO 04/06/17 19:00 04/07/17 20:25 (Toprol Xl) 50 mg BID PO 04/07/17 21:00 04/08/17 09:40 (Ecotrin Ec) 81 mg DAILY PO 04/08/17 09:00 04/08/17 09:40 Vital Signs / I&O Vital Signs Date Time Temp Pulse Resp B/P Pulse Ox O2 Delivery O2 Flow Rate FiO2 04/08/17 07:01 54 04/08/17 06:00 59 04/08/17 05:00 57 04/08/17 04:00 56 04/08/17 04:00 Room Air 04/08/17 04:00 98.0 56 18 110/69 97 04/08/17 03:00 57 04/08/17 02:00 55 04/08/17 01:00 60 04/08/17 00:00 Room Air 04/08/17 00:00 98.3 58 18 128/81 97 04/08/17 00:00 58 04/07/17 23:00 66 04/07/17 22:00 64 04/07/17 21:00 68 04/07/17 20:00 Room Air 04/07/17 20:00 62 04/07/17 20:00 98.2 62 20 117/72 98 04/07/17 18:01 60 04/07/17 17:00 66 04/07/17 16:01 80 04/07/17 15:57 98.8 79 18 126/88 99 04/07/17 15:00 87 04/07/17 12:00 76 04/07/17 11:15 98.4 76 18 120/74 100 04/07/17 11:00 76 I/O 04/07/17 04/07/17 04/07/17 04/08/17 04/08/17 04/08/17 07:00 15:00 23:00 07:00 15:00 23:00 Intake Total 910 ml 1720 ml 1220 ml Output Total 600 ml 1900 ml 1100 ml Balance 310 ml -180 ml 120 ml Intake Oral 240 ml 720 ml 720 ml IV Total 670 ml 1000 ml 500 ml Output Urine Total 600 ml 1900 ml 1100 ml # Voids 4 # Bowel Movements 0 0 0 Physical Exam GENERAL: Well-nourished, well-developed patient. SKIN: Warm and dry. HEAD: Normocephalic. EYES: No scleral icterus. No injection or drainage. NECK: Supple, trachea midline. No JVD or lymphadenopathy. CARDIOVASCULAR: Regular rate and rhythm without murmurs, gallops, or rubs. RESPIRATORY: Breath sounds equal bilaterally. No accessory muscle use. GASTROINTESTINAL: Abdomen soft, non-tender, nondistended. EXTREMITIES: No cyanosis, or edema. NEUROLOGICAL: Awake, alert, and oriented x 3. Non-focal. Laboratory Laboratory Tests Test 04/08/17 04:10 Sodium Level 141 MEQ/L Potassium Level 3.5 MEQ/L Chloride Level 108 MEQ/L Carbon Dioxide Level 25.9 MEQ/L Anion Gap 7 MEQ/L Blood Urea Nitrogen 6 MG/DL Creatinine 0.47 MG/DL Estimat Glomerular Filtration 143 ML/MIN Rate Random Glucose 89 MG/DL Calcium Level 8.5 MG/DL Magnesium Level 2.1 MG/DL Imaging Last Impressions Myocardial Perfusion Scan Nuc [facility] 04/07/17 0000 Signed Impressions: Service Date/Time: Friday, April 07, 2017 12:28 - CONCLUSION: No areas of ischemia are seen. RISK CATEGORY: Low (<1%% Annual Mortality Rate) Dimitry Renee MD Chest X-Ray 04/06/17 1522 Signed Impressions: Service Date/Time: Thursday, April 06, 2017 15:39 - CONCLUSION: No acute disease. Murray Stevens MD FACR Assessment and Plan Problem List: (1) Ventricular tachycardia Assessment and Plan: Unremarkable ECHO and MPI. Recommendations: 1. Continue medical management 2. Consult EP Dr. Solomon for further recommendations Jerod Navas MD Apr 08, 2017 10:09
[2017-04-08] MEDS: ENOXAPARIN SODIUM 30 MG/0.3 ML SYRINGE SQ SCH (21:15)
[2017-04-08] MEDS: TEMAZEPAM 15 MG CAP PO PRN (21:26)
[2017-04-09] VITALS (24 sets, daily range): BP systolic 106–147; BP diastolic 55–94; PULSE 57–94; RESP 16–18; TEMP 97.9–99.2; O2SAT 96–100
[2017-04-09] MEDS: SODIUM CHLOR 0.9% 1000 ML INJ 1,000 ML IV SCH (03:30)
[2017-04-09] MEDS ORDERED: POTASSIUM CHLORIDE 20 MEQ CONTROLLED RELEASE TAB PO ONE (07:15)
--- NOTE | 2017-04-09 08:19 | HHI.PR ---
Subjective Remarks rare palpitation no dizziness Objective Vitals heart reg lung cta abd s/nt ext no edema Vital Signs Date Time Temp Pulse Resp B/P Pulse Ox O2 Delivery O2 Flow Rate FiO2 04/09/17 07:00 98 Room Air 04/09/17 07:00 99.0 73 18 127/77 98 04/09/17 07:00 65 04/09/17 06:00 61 04/09/17 05:00 59 04/09/17 04:00 Room Air 04/09/17 04:00 98.1 64 18 106/69 98 04/09/17 04:00 64 04/09/17 03:00 59 04/09/17 02:00 57 04/09/17 01:00 60 04/09/17 00:00 99 Room Air 04/09/17 00:00 98.3 68 18 109/55 96 04/09/17 00:00 68 04/08/17 23:00 71 04/08/17 22:00 58 04/08/17 21:00 60 04/08/17 20:00 98.0 74 18 111/78 97 04/08/17 20:00 74 04/08/17 20:00 99 Room Air 04/08/17 18:01 74 04/08/17 17:00 66 04/08/17 16:01 76 04/08/17 15:01 98.7 77 18 122/70 100 04/08/17 15:00 76 04/08/17 14:00 72 04/08/17 13:00 74 04/08/17 12:01 64 04/08/17 11:15 98.6 78 18 116/75 98 04/08/17 11:00 72 04/08/17 10:01 90 04/08/17 09:00 78 04/08/17 08:30 99 Room Air 04/08/17 08:30 78 04/08/17 08:30 98.4 78 18 127/82 99 04/08/17 04/08/17 04/09/17 15:00 23:00 07:00 Intake Total 480 ml 1420 ml Output Total 1400 ml 1000 ml Balance -920 ml 420 ml Intake Oral 480 ml 720 ml IV Total 700 ml Output Urine Total 1400 ml 1000 ml # Voids 5 # Bowel Movements 1 0 Result Diagram: 04/07/17 0545 04/08/17 0410 Imaging Last Impressions Chest X-Ray 04/06/17 1522 Signed Impressions: Service Date/Time: Thursday, April 06, 2017 15:39 - CONCLUSION: No acute disease. Murray Stevens MD FACR A/P Problem List: (1) Ventricular tachycardia Status: Acute Plan: -- Patient has been experiencing self-limiting episodes of dizziness associated with palpitations - Outpatient event monitor interpreted by cardiology, Dr. Kai Brown cardiology showed sustained ventricular tachycardia. Patient directed to the emergency room. - Patient initially placed on amiodarone (04/06 - 04/08/17) - Metoprolol, initially 25 mg PO twice a day, increased to 50 mg PO BID (04/07) - Serial cardiac enzymes were negative - Serial EKGs did not show any acute ischemic changes - Thyroid functions are within normal limits - Echocardiogram --> EF 60-65% - Lexiscan (04/07/17) --> negative study - Telemetry reviewed NO sustained VT - pt denies dizziness or palpitations currently - Aspirin 81 mg PO daily - Case d/w Cardiology, Dr. Branham, 04/08/17 [facility] recommended Dr Solomon evaluation prior to d/c - John Sanders MD Apr 09, 2017 08:19
[2017-04-09] MEDS: METOPROLOL SUCCINATE 50 MG EXTENDED RELEASE TAB PO SCH ×2 (08:51→20:57)
[2017-04-09] MEDS: SODIUM CHLORIDE 0.9% FLUSH 10 ML FLUSH IV FLUSH SCH ×2 (08:52→20:57)
[2017-04-09] MEDS: ASPIRIN EC 81 MG TABEC PO SCH (08:52)
[2017-04-09 11:08] LABS: BETA HCG QUANT 1 MIU/ML (0-5)
--- NOTE | 2017-04-09 11:33 | MB ---
cc: MARTIN BERMUDEZ MD, HANSCY M.D. DATE OF CONSULTATION: 04/09/2017 REASON FOR CONSULTATION Wide complex tachyarrhythmia, possible ventricular tachycardia. HISTORY OF PRESENT ILLNESS Mrs. 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 It began a couple of weeks ago, episode of dizziness and near syncope. She was having some dizziness in the past but this time is more intense. She decided to go to the primary doctor. Holter was placed, wide complex tachyarrhythmia was found and she was referred to the emergency room. She called 9--1 and by the time she got to [facility], they stated she was in wide complex tachyarrhythmia and was ready to defibrillate her when she converted into sinus rhythm. She was admitted, she was given amiodarone, subsequently metoprolol and I was consulted for further evaluation and management. The chart was reviewed, the patient was evaluated. ALLERGIES None. SOCIAL HISTORY She had a glass of wine with dinner. FAMILY HISTORY Noncontributory to her current medical condition. MEDICATIONS She is currently on: 1. Acetaminophen. 2. Xanax. 3. Aspirin. 4. Lovenox. 5. Magnesium. 6. Metoprolol 50 mg twice a day. REVIEW OF SYSTEMS She refers no chest pain, no chest discomfort. She is very worried. No vomiting. No fever. PHYSICAL EXAMINATION GENERAL: Alert, fully oriented. VITAL SIGNS: Her blood pressure is 122/77, pulse 65, respiratory rate 18. LUNGS: Ventilated. CARDIOVASCULAR: S1-S2, no gallop or murmur. ABDOMEN: Soft. No mass. No bruits. EXTREMITIES: No edema. ELECTROCARDIOGRAM Shows sinus rhythm. There is some PVCs with a transition in V2. That may be under the aortic cusp. Otherwise, no prolonged QT, no pre-excitation seen. LABORATORY DATA Hemoglobin is 11.7, white blood cell 4.7, potassium is 3.5, creatinine 0.47, INR is 1.0. ASSESSMENT AND RECOMMENDATIONS Mrs. Dunn has possible outflow tract tachyarrhythmia. Currently she is stable. She is on metoprolol as well as amiodarone. Amiodarone was discontinued by Dr. Bermudez. She has a normal ejection fraction. At this point medical management versus VT ablation discussed. The risks, the nature and the benefit of the procedure are clearly stated to her. Risks include pneumothorax, cardiac perforation, stroke and even . At this point she is worried and concerned, she wants to proceed with ablation if electrophysiology study and ablation is necessary. I am going to keep the patient n.p.o. The procedure will be performed today. Eric Solomon MD HS/TLL /9:38 AM /11:08 AM
[2017-04-09] MEDS: ENOXAPARIN SODIUM 30 MG/0.3 ML SYRINGE SQ SCH (20:57)
[2017-04-09] MEDS: TEMAZEPAM 15 MG CAP PO PRN (21:30)
[2017-04-10] VITALS (22 sets, daily range): BP systolic 104–135; BP diastolic 60–79; PULSE 55–88; RESP 18–20; TEMP 97.9–99.1; O2SAT 96–100
[2017-04-10] MEDS: ALPRAZolam 0.25 MG TAB PO PRN ×2 (00:08→14:15)
--- NOTE | 2017-04-10 07:51 | HHI.PR ---
Subjective Remarks no problems overnight Objective Vitals heart reg lung cta abd s/nt ext no edema Vital Signs Date Time Temp Pulse Resp B/P Pulse Ox O2 Delivery O2 Flow Rate FiO2 04/10/17 06:00 66 04/10/17 05:00 58 04/10/17 04:00 58 04/10/17 03:00 97.9 65 18 104/60 97 04/10/17 03:00 60 04/10/17 02:00 66 04/10/17 01:00 64 04/10/17 00:00 64 04/09/17 23:00 98.5 70 16 122/85 96 04/09/17 23:00 64 04/09/17 22:00 76 04/09/17 21:00 80 04/09/17 20:00 94 04/09/17 19:00 78 04/09/17 19:00 97.9 68 18 147/74 98 04/09/17 19:00 98 Room Air 04/09/17 18:00 65 04/09/17 17:00 72 04/09/17 16:00 62 04/09/17 15:00 98.6 62 18 137/82 100 04/09/17 15:00 67 04/09/17 14:00 68 04/09/17 13:00 72 04/09/17 12:00 68 04/09/17 11:00 68 04/09/17 11:00 99.2 76 18 118/94 100 04/09/17 10:00 75 04/09/17 09:00 76 04/09/17 08:00 72 04/09/17 04/09/17 04/10/17 15:00 23:00 07:00 Intake Total 240 ml 480 ml Output Total 1200 ml 200 ml Balance -960 ml 280 ml Intake Oral 240 ml 480 ml Output Urine Total 1200 ml 200 ml Result Diagram: 04/07/17 0545 04/08/17 0410 Imaging Last Impressions Chest X-Ray 04/06/17 1522 Signed Impressions: Service Date/Time: Thursday, April 06, 2017 15:39 - CONCLUSION: No acute disease. Murray Stevens MD FACR A/P Problem List: (1) Ventricular tachycardia Status: Acute Plan: -- Patient has been experiencing self-limiting episodes of dizziness associated with palpitations - Outpatient event monitor interpreted by cardiology, Dr. Kai Brown cardiology showed sustained ventricular tachycardia. Patient directed to the emergency room. - Patient initially placed on amiodarone (04/06 - 04/08/17) - Metoprolol, initially 25 mg PO twice a day, increased to 50 mg PO BID (04/07) - Serial cardiac enzymes were negative - Serial EKGs did not show any acute ischemic changes - Thyroid functions are within normal limits - Echocardiogram --> EF 60-65% - Lexiscan (04/07/17) --> negative study - Telemetry reviewed NO sustained VT - pt denies dizziness or palpitations currently - Aspirin 81 mg PO daily - Pt to go for EPS today. d/c when ok with John Scott MD Apr 10, 2017 07:51
[2017-04-10] MEDS: SODIUM CHLORIDE 0.9% FLUSH 10 ML FLUSH IV FLUSH SCH ×2 (09:09→21:00)
[2017-04-10] MEDS: METOPROLOL SUCCINATE 50 MG EXTENDED RELEASE TAB PO SCH (09:09)
[2017-04-10] MEDS: ASPIRIN EC 81 MG TABEC PO SCH (09:09)
[2017-04-10] MEDS ORDERED: ISOPROTERENOL HCL 1 MG/5 ML AMP ONE (17:57)
[2017-04-10] MEDS ORDERED: LORazepam 2 MG/ML VIAL IV PRN (19:30)
[2017-04-10] MEDS ORDERED: ONDANSETRON HCL 4 MG/2 ML VIAL IV PRN (19:30)
[2017-04-10] MEDS ORDERED: METOCLOPRAMIDE HCL 10 MG/2 ML VIAL IV PRN (19:30)
[2017-04-10] MEDS ORDERED: oxyCODONE/ACETAMINOPHEN 5 MG/325 MG TAB PO PRN ×2 (19:30)
[2017-04-10] MEDS ORDERED: LIDOCAINE HCL 1% 50 ML VIAL INFIL PRN (19:30)
[2017-04-10] MEDS ORDERED: BACITRACIN OINT 0.9 GM PKT TOP ONE (19:30)
[2017-04-10] MEDS ORDERED: SODIUM CHLOR 0.9% 250 ML INJ 250 ML IV PRN (19:30)
[2017-04-10] MEDS ORDERED: ATROPINE SULFATE 1 MG/ML VIAL IV PRN (19:30)
--- NOTE | 2017-04-10 19:46 | CATHPROC ---
Motorator HIS Report Study Information Study Number Scheduled Start Study Start [id number] 04/10/2017 Apr 10 2017 5:07PM Referring Institution Admit Source Facility Department 1 Emergency department [facility] - Manager Manufacturing Physician and Clinical Staff Initial Eric Poe Pinion Polisher Althea Lozada,DEVIN Pinion Polisher Shelly Hollins,RT(R) TECH2 Other Anesthesia, ARCHITECTURAL PROJECT MANAGER Recorder Kadi Lowe,RN Scrub Benny Joshua,RT(R) Procedures Performed Procedure Cardioversion Equipment Time Road Traffic Controller Description Size Mfg Part Number Used/Scraped BIOSENSE PAULINO CATHETER, CELSIUS DS, 8MM, F [id number] 18:51 FR 7 Used INC. TYPE QUAD *[id number] 17:23 [employer] PACK, CCL CUSTOM * Used *[id number] 17:23 [employer] PACER TALAMANTES, LIMB * 2530 *[id number] Used [id number] 17:23 [employer] BL[employer],WARM AIR CCL * Used *[id number] 17:24 [employer] CATHETER, JSN, QUAD FR 5 Used *[id number] 17:24 [employer] MEDICAL CATHETER, JSN, QUAD FR 5 Used *[id number] 17:24 [employer] MEDICAL CATHETER, JSN, QUAD FR 5 Used *[id number] 17:24 [employer] MEDICAL CATHETER, JSN, QUAD FR 5 Used *[id number] 17:23 [employer] MEDICAL ELECTRODE KIT, TEJAS X SURFACE * [id number] Used [id number] 17:24 [employer] MEDICAL SHEATH, EPS, FR5 FAST CATH FR 5 Used *[id number] 17:24 [employer] MED[employer] SHEATH, EPS, FR5 FAST CATH FR 5 Used *[id number] 17:24 [employer] MED[employer] SHEATH, EPS, FR5 FAST CATH FR 5 Used *[id number] 17:24 [employer] MED[employer] SHEATH, EPS, FR6 FAST CATH FR [address] [id number] Used 17:24 [employer] MEDICAL SHEATH, EPS, FR8 FAST CATH FR [id number] 18:50 [employer] MED[employer] SHEATH, EPS, FR8 FAST CATH FR 8 [id number] Used [facility] P[facility], ELECTROSURGICAL 17:23 * [id number] *[id number] Used SURGICAL GROUNDING (BLUE) Labs Hgb (g/dl) Hct (%) WBC (l/cumm) Platelets (thousands) 11.60-17.00 35.00-51.00 4.00-11.00 150.00-450.00 11.7 34 4.7 158 Glucose (mg/dl) BUN (mg/dl) Creatinine (mg/dl) BUN:Creatinine (1:x) 74.00-106.00 7.00-18.00 0.50-1.30 10.00-20.00 143 16 0.4 40 Na (meq/l) K (meq/l) 136.00-145.00 3.50-5.10 141 3.5 INR (PTT:PT) 0.90-1.10 1 Medication Medication Total Dose (Bolus/Oral) Medication Total Dosage/Unit 1% XYLOCAINE 40 mL Medications (Bolus/Oral) Medication Time Given Dosage/Unit Administered By Reason 1% XYLOCAINE 04/10/2017 6:25:09 PM 20 mL Eric Solomon 20 mL 1% XYLOCAINE given in lab by Eric Solomon in Left Groin via Subcutaneous. Ordered by Erich Solomon. 1% XYLOCAINE 04/10/2017 6:26:43 PM 20 mL Eric Solomon 20 mL 1% XYLOCAINE given in lab by Eric Solomon in Right Groin via Subcutaneous. Ordered by Kyrie Solomon. Medication (Drip) Medication Time Given Dosage/Unit Concentration/Unit Diluent (ml) Solution ISUPREL 04/10/2017 6:41:10 PM 5 mcg/min 1 mg 250 NaCl .9 5 mcg/min ISUPREL given in lab by Anesthesia, ARCHITECTURAL PROJECT MANAGER in Left Antecubital via Peripheral IV. Pump/Drip F low = 75 ml/hr using NaCl .9 with a concentration of 1 mg in 250 ml. Ordered by Eric Solomon. Initial Case Assessment Cardiovascular HR Rhythm NIBP Chest Pain 72 SR 142/82 0 Edema Present Skin color Skin None Normal Warm Dry Circulatory - Right Pulses Dorsalis Pedis 2 Scale (0,1,2,3,4,d) Circulatory - Left Pulses Dorsalis Pedis 2 Scale (0,1,2,3,4,d) Circulatory - Lower Extremities Color Lower Right Color Lower Left Normal Normal Neurological State Oriented to time-place- Alert Moves all extremities person Respiration - General Respiration Rate SpO2 (%) O2 (lpm) (B/min) 16 100 0 Final Case Assessment Cardiovascular HR Rhythm NIBP Chest Pain 68 SR 110/62 0 Circulatory - Right Pulses Dorsalis Pedis 2 Scale (0,1,2,3,4,d) Circulatory - Left Pulses Dorsalis Pedis 2 Scale (0,1,2,3,4,d) Circulatory - Lower Extremities Color Lower Right Color Lower Left Normal Normal Neurological State Oriented to time-place- Alert person Respiration - General Respiration Rate SpO2 (%) O2 (lpm) (B/min) 16 99 0 Chronological Log Time Study Chronological Log 17:35:44 Patient arrived via Bed. 17:35:51 Patient Name, D.O.B, / Armband Verified By R.N. Anesthesia at bedside. Assumes care of patient. See anesthesia record for all intra-operative v ital signs and 17:36:53 medications. 17:38:10 Verbal Stimulation=2 Physical Stimulation=2 Airway=2 Respiration=2 TOTAL=8. (0=absent, 1=li mited, 2=present) 17:39:20 Presedation assessment performed by Manager Manufacturing RN. 17:40:33 Patient has been NPO for More than 6Hrs. 17:41:36 Skin Breakdown: None noted per pt. 17:44:47 Patient Warmer Placed on the Table. 17:44:49 Disposable Defibrillator Pads Placed On Patient. 17:44:50 Linda Prominences Protected 17:44:55 A # 20 IV was noted in the Antecubital (right). Grade = 0. 0.9% NS @ KVO. 17:44:58 A # 20 IV was noted in the Hand (right). Grade = 0. 0.9% NS @ KVO. 17:45:03 History and physical on the chart or being dictated. Assessment: Initial Case, HR=72 BPM, Rhythm=SR, PVOZ=127/82 mmhg, Chest Pain=0, Edema=None, Col or=Normal, Skin = Warm, Dry Right Pulses: Osvaldo Ped=2 Left Pulses: Osvaldo Ped=2 17:45:07 Lower Right Extremities: Color=Normal Lower Left Extremities: Color=Normal Neurological: State=Alert, Ox3, ROMAN Respiration: Resp=16 B/min, YpG9=160 %, O2=0 lpm 17:45:11 Table restraints applied according to hospital policy 17:55:52 Right groin prepped with 2% chlorhexidine, and with a 3 min. waiting time. 17:55:53 Left groin prepped with 2% chlorhexidine, and with a 3 min. waiting time. 17:55:59 Right groin prepped with 2% chlorhexidine, and with a 3 min. waiting time. 18:06:20 MD paged 18:09:08 Reference ECG taken 18:22:13 MD arrived. Time Out. Correct patient, procedure, procedure equipment, site and side verified with physicia n present. Time 18:24:50 concurred by MD, individual staff and ARCHITECTURAL PROJECT MANAGER. Time Out #2 - Consents verified, patient in correct position, all results are labled and displa yed, safety precautions 18:24:52 taken, antibiotics administered. Time out concurred by MD, individual staff and ARCHITECTURAL PROJECT MANAGER in procedu re 18:24:59 Case Start 18:25:09 20 mL 1% XYLOCAINE given in lab by Eric Solomon in Left Groin via Subcutaneous. Ordered by Eric Solomon. 18:25:36 Vascular access was obtained in the Fem Vein (left). 18:25:43 Vascular access was obtained in the Fem Vein (left). 18:25:46 Vascular access was obtained in the Fem Vein (left). 18:26:02 A SHEATH, EPS, FR5 FAST CATH FR 5 was advanced into the Fem Vein (left) using the Modified Seldinger technique. 18:26:24 A SHEATH, EPS, FR5 FAST CATH FR 5 was advanced into the Fem Vein (left) using the Modified Seldinger technique. 18:26:33 A SHEATH, EPS, FR5 FAST CATH FR 5 was advanced into the Fem Vein (left) using the Modified Seldinger technique. 18:26:43 20 mL 1% XYLOCAINE given in lab by Eric Solomon in Right Groin via Subcutaneous. Ordered b Eric Murdock. 18:26:53 Vascular access was obtained in the Fem Vein (right). 18:27:42 A SHEATH, EPS, FR6 FAST CATH FR 6 was advanced into the Fem Vein (right) using the Modified Seldinger technique. A CATHETER, JSN, QUAD FR 5 was advanced vis Fem Vein (right) and placed in the CS. Placement wa s visually 18:29:49 confirmed under fluoroscopy. A CATHETER, JSN, QUAD FR 5 was advanced vis Fem Vein (left) and placed in the HIS. Placement wa s visually 18:31:13 confirmed under fluoroscopy. A CATHETER, JSN, QUAD FR 5 was advanced vis Fem Vein (left) and placed in the HRA. Placement wa s visually 18:31:50 confirmed under fluoroscopy. A CATHETER, JSN, QUAD FR 5 was advanced vis Fem Vein (left) and placed in the RVA. Placement wa s visually 18:32:01 confirmed under fluoroscopy. 18:33:28 Vascular access was obtained in the Fem Art (right). 18:33:42 A SHEATH, EPS, FR6 FAST CATH FR 6 was advanced into the Fem Art (right) using the Modified Seldinger technique. 18:34:09 EP study in progress. 5 mcg/min ISUPREL given in lab by Anesthesia, ARCHITECTURAL PROJECT MANAGER in Left Antecubital via Peripheral IV. Pump/ Drip Flow = 75 ml/hr 18:41:10 using NaCl .9 with a concentration of 1 mg in 250 ml. Ordered by Eric Solomon. 18:50:36 EPS complete. 18:50:37 Ventricular tachycardia induced. 18:51:12 Vascular access was obtained in the Fem Vein (right). 18:51:18 A SHEATH, EPS, FR8 FAST CATH FR 8 was advanced into the Fem Art (right) using the ~TECHNIQU E~ technique. A CATHETER, CELSIUS DS, 8MM, F TYPE QUAD FR 7 was advanced vis Fem Vein (right) and placed in t he HRA. 18:52:04 Placement was visually confirmed under fluoroscopy. 18:53:18 Ablation in progress. 19:00:24 ECG rhythm of VT noted. Patient cardioverted at 200 joules. Success 19:02:30 Ablation in progress. 19:17:55 Ablation complete, isuprel discontinued. 19:21:05 All catheters were removed without difficulty. 19:22:43 CIC called. Spoke to Caitlin. 19:23:26 Sheaths removed; pressure applied to access sites. 19:23:43 No case complications noted. 19:23:49 Cine recording checked. 19:23:51 Bedside Report will be given. 19:23:52 Case End 19:44:00 Sterile dressing applied to sites 19:44:20 Defibrillator and ground pads removed. Skin intact. Assessment: Final Case, HR=68 BPM, Rhythm=SR, RJCM=337/62 mmhg, Chest Pain=0 Right Pulses: Osvaldo Ped=2 Left Pulses: Osvaldo Ped=2 19:45:22 Lower Right Extremities: Color=Normal Lower Left Extremities: Color=Normal Neurological: State=Alert, Ox3 Respiration: Resp=16 B/min, SpO2=99 %, O2=0 lpm 19:46:01 Patient moved to stretcher End Study - Contrast Media Used In Study Contrast Total Opened (mL) Total Used (mL) Total Wasted (mL) Unspecified 0 0 0 End Study - Maximum Contrast Load Max Contrast Load (mL) 937.5 End Study - Radiation Exposure Fluoro Time (minutes) 4.5 End Study - Sheaths Sheaths Pulled By Sheath Hold Time (min) Althea Lozada End Study - Patient Disposition Complications Transferred To Interventional Outcome No Telemetry Bed successful
[2017-04-10] MEDS ORDERED: MIDAZOLAM HCL 2 MG/2 ML VIAL ONE (20:03)
[2017-04-10] MEDS: METOPROLOL SUCCINATE 25 MG EXTENDED RELEASE TAB PO SCH (21:00)
[2017-04-10] MEDS: TEMAZEPAM 15 MG CAP PO PRN (22:25)
[2017-04-11] VITALS (13 sets, daily range): BP systolic 100–105; BP diastolic 63–64; PULSE 67–82; RESP 18–20; TEMP 98.6–98.8; O2SAT 99–100
--- NOTE | 2017-04-11 00:07 | MA ---
cc: PRADIP SOLOMON M.D. DATE 04/10/17 PROCEDURE PERFORMED Electrophysiology study, CS cannulation, 3-D mapping, radiofrequency ablation of right ventricular outflow tract. Tachyarrhythmia, atrial fibrillation, cardioversion. Repeat electrophysiology study on Isuprel infusion that was very complex case. HISTORY Mrs. Dunn is a 46-year-old female with history of palpitation. She has a Holter placed. She was brought to the emergency room on Sunday due to ventricular tachycardia. She has multiple PVCs. During hospitalization electrophysiology study and ablation was decided. The risks, the nature and the benefit of the procedure are clearly stated to her. The risks include pneumothorax, cardiac perforation, stroke, need for open heart surgery and even . The patient understood and agreed to proceed. PROCEDURE IN DETAIL After written informed consent was obtained, the patient was brought to the EP lab where she was prepped and draped in the usual sterile fashion. Conscious sedation was initiated and maintained throughout the procedure by anesthesiologist. Once sedation verified, the right and left inguinal area was anesthetized with 2% Xylocaine. Using modified Seldinger technique, the left femoral vein was cannulated on four occasions. Four guidewires were advanced over the wire, two 5 and two 6 Maltese Hemaquet were advanced. Then the left femoral artery was cannulated on one occasion, guidewire was advanced over the wire, 5-Maltese Hemaquet was advanced. Then under fluoroscopic guidance through the 5 and 6 Maltese Hemaquets, four 5-Maltese Yue curved quadripolar electrophysiology catheter advanced into position on the His, upper right atrium, coronary sinus and right ventricular apex. Basic interval was measured, all within normal limits. At this point atrial pacing protocol was performed. Atrial pacing protocol was of incremental atrial pacing as well as program stimulation with 110 cycle length and up to one extrastimuli delivered. No tachyarrhythmia was induced. Ventricular pacing protocol was performed. There was no tachyarrhythmia induced. Ventricular pacing protocol consisted of incremental ventricular pacing as well as program stimulation with 110 cycle length and up to two extrastimuli delivered. The patient had multiple PVCs. Then I decided to initiate Isuprel at 20 rosita. During Isuprel infusion the patient went into ventricular tachyarrhythmia with electrocardiographic ____ AV primitivo reentrant tachycardia. He was mapped. Tachyarrhythmia came from the septal area under the pulmonary valve. A 3-D mapping was performed. I did use F curve 8 mm mapping radiofrequency ablation from [facility]. During ablation the patient went into sinus rhythm. Ventricular tachycardia was initiated at the beginning of the ablation. Then terminated. The patient was observed. The patient was having a lot of PVCs, briefly stopped. Then resumed again. Further ablation was delivered in that area. Early activation observed in that area. Then during ablation the patient went into atrial fibrillation with biventricular response. After multiple observation, the patient was cardioverted into sinus rhythm. Then the patient continued on Isuprel. Was observed. The ventricular tachycardia was reinitiated again. During the initiation ventricular tachyarrhythmia a ___ valvular area was mapped. Again, radiofrequency energy was delivered. The patient converted to sinus rhythm. At that point the patient was observed. No further palpitations observed. No tachyarrhythmia observed after over 20 minutes. Pacing was performed. The patient was still on Isuprel. At that point procedure was completed. All catheter were removed. The patient was to be transferred to telemetry unit. Will be observed. That was very complex case. No incident report. The patient tolerated the procedure. Blood loss minimal. FINDINGS 1. Electrocardiogram at baseline the patient was in sinus, postprocedure electrocardiogram was unchanged. 2. Basic interval base cycle length was around 920 milliseconds, AH was around 80 milliseconds, AV was around 42 milliseconds. 3. Atrial pacing protocol no tachyarrhythmia was induced. 4. Ventricular pacing protocol no tachyarrhythmia was induced. 5. Tachyarrhythmia with electrocardiographic characteristic of right ventricular outflow tract tachycardia was induced. It was mapped and ablated. Ablation was successful. During ablation atrial fibrillation was cardioverted. CONCLUSION Successful electrophysiology study, mapping, radiofrequency ablation of right ventricular outflow tract tachyarrhythmia, COMMENT/RECOMMENDATIONS The patient going to be transferred to recovery room. Will be observed. When stable will be discharged home. Pradip Solomon MD HS/EO /10:53 PM /11:30 PM
[2017-04-11 06:36] LABS: APTT (PATIENT) 25.4 SEC (24.3-30.1); PROTHROMBIN TIME - PATIENT 11.4 SEC (9.8-11.6)
--- NOTE | 2017-04-11 08:39 | HHI.PR ---
Subjective Remarks doing well Objective Vitals heart reg lung cta abd s/nt ext no edema Vital Signs Date Time Temp Pulse Resp B/P Pulse Ox O2 Delivery O2 Flow Rate FiO2 04/11/17 06:00 72 04/11/17 05:00 72 04/11/17 04:00 98.6 72 18 105/64 99 04/11/17 04:00 67 04/11/17 03:00 72 04/11/17 02:00 70 04/11/17 01:00 68 04/11/17 00:00 72 04/11/17 00:00 98.7 75 18 100/63 100 04/10/17 23:00 68 04/10/17 22:00 70 04/10/17 21:00 78 04/10/17 20:00 98.6 72 18 110/79 96 04/10/17 20:00 88 04/10/17 17:00 67 04/10/17 16:00 60 04/10/17 15:00 99.1 65 20 114/71 100 04/10/17 15:00 70 04/10/17 14:00 74 04/10/17 13:00 64 04/10/17 12:00 71 04/10/17 11:00 72 04/10/17 11:00 98.6 67 20 135/76 100 04/10/17 10:00 72 04/10/17 09:00 82 04/10/17 04/10/17 04/11/17 15:00 23:00 07:00 Intake Total 240 ml 240 ml Output Total 1100 ml Balance 240 ml -860 ml Intake Oral 240 ml 240 ml Output Urine Total 1100 ml # Voids 4 Result Diagram: 04/07/17 0545 04/08/17 0410 Imaging Last Impressions Chest X-Ray 04/06/17 1522 Signed Impressions: Service Date/Time: Thursday, April 06, 2017 15:39 - CONCLUSION: No acute disease. Murray Stevens MD FACR A/P Problem List: (1) Ventricular tachycardia Status: Acute Plan: -- Patient has been experiencing self-limiting episodes of dizziness associated with palpitations - Outpatient event monitor interpreted by cardiology, Dr. Kai Brown cardiology showed sustained ventricular tachycardia. Patient directed to the emergency room. - Patient initially placed on amiodarone (04/06 - 04/08/17) - Metoprolol, initially 25 mg PO twice a day, increased to 50 mg PO BID (04/07) - Serial cardiac enzymes were negative - Serial EKGs did not show any acute ischemic changes - Thyroid functions are within normal limits - Echocardiogram --> EF 60-65% - Lexiscan (04/07/17) --> negative study - Telemetry reviewed NO sustained VT - pt denies dizziness or palpitations currently - Aspirin 81 mg PO daily s/p ep ablation. d/c if ok with dr Solomon and f/u John Sanders MD Apr 11, 2017 08:39
[2017-04-11] MEDS ORDERED: METO25TA6 PO (08:40)
--- NOTE | 2017-04-11 08:40 | HHI.DCPOC ---
Discharge Care Plan Diagnosis: (1) Ventricular tachycardia Goals to Promote Your Health * To prevent worsening of your condition and complications * To maintain your health at the optimal level Directions to Meet Your Goals Take your medications as prescribed Follow your dietary instruction Follow activity as directed Keep your appointments as scheduled Take your immunizations and boosters as scheduled If your symptoms worsen call your PCP, if no PCP go to Urgent Care Center or Emergency Room Smoking is Dangerous to Your Health. Avoid second hand smoke Call the 24-hour hour crisis hotline for domestic abuse at John Sanders MD Apr 11, 2017 08:40
[2017-04-11] MEDS ORDERED: ASPI-99 PO (08:41)
--- NOTE | 2017-04-11 08:50 | PD.CARD.PN ---
Subjective Subjective Remarks Feels okay. Objective Medications Current Medications Medications (Trade) Dose Ordered Sig/Charline Route Start Time Stop Time Status Last Admin (NS Flush) 2 ml UNSCH PRN IV FLUSH 04/06/17 19:00 (NS Flush) 2 ml BID IV FLUSH 04/06/17 21:00 04/10/17 21:00 (Tylenol) 650 mg Q4H PRN PO 04/06/17 19:00 04/08/17 09:40 (Restoril) 15 mg HS PRN PO 04/06/17 19:00 04/10/17 22:25 (Narcan Inj) 0.4 mg UNSCH PRN IV 04/06/17 19:00 (Milk Of Magnesia Liq) 30 ml Q12H PRN PO 04/06/17 19:00 (Nitrostat Sl) 0.4 mg Q5M PRN SL 04/06/17 19:00 (Xanax) 0.25 mg TID PRN PO 04/06/17 19:00 04/10/17 14:15 (Ecotrin Ec) 81 mg DAILY PO 04/08/17 09:00 04/10/17 09:09 (Percocet 5-325 Mg) 1 tab Q4H PRN PO 04/10/17 19:30 (Percocet 5-325 Mg) 2 tab Q4H PRN PO 04/10/17 19:30 (Ativan Inj) 0.5 mg UNSCH PRN IV 04/10/17 19:30 04/11/17 19:29 Atropine Sulfate 0.5 mg 0.5 mg UNSCH PRN IV 04/10/17 19:30 (NS 250 ml Inj) 250 ml @ 500 mls/hr ONCE PRN IV 04/10/17 19:30 04/11/17 19:29 (Reglan Inj) 10 mg Q4H PRN IV 04/10/17 19:30 (Zofran Inj) 4 mg Q4H PRN IV 04/10/17 19:30 (Xylocaine 1% Inj (50 ml)) 10 ml UNSCH PRN INFIL 04/10/17 19:30 04/11/17 19:29 (Toprol Xl) 25 mg DAILY PO 04/10/17 21:00 04/10/17 21:00 Vital Signs / I&O Vital Signs Date Time Temp Pulse Resp B/P Pulse Ox O2 Delivery O2 Flow Rate FiO2 04/11/17 06:00 72 04/11/17 05:00 72 04/11/17 04:00 98.6 72 18 105/64 99 04/11/17 04:00 67 04/11/17 03:00 72 04/11/17 02:00 70 04/11/17 01:00 68 04/11/17 00:00 72 04/11/17 00:00 98.7 75 18 100/63 100 04/10/17 23:00 68 04/10/17 22:00 70 04/10/17 21:00 78 04/10/17 20:00 98.6 72 18 110/79 96 04/10/17 20:00 88 04/10/17 17:00 67 04/10/17 16:00 60 04/10/17 15:00 99.1 65 20 114/71 100 04/10/17 15:00 70 04/10/17 14:00 74 04/10/17 13:00 64 04/10/17 12:00 71 04/10/17 11:00 72 04/10/17 11:00 98.6 67 20 135/76 100 04/10/17 10:00 72 04/10/17 09:00 82 I/O 04/10/17 04/10/17 04/10/17 04/11/17 04/11/17 04/11/17 07:00 15:00 23:00 07:00 15:00 23:00 Intake Total 480 ml 240 ml 240 ml Output Total 200 ml 1100 ml Balance 280 ml 240 ml -860 ml Intake Oral 480 ml 240 ml 240 ml Output Urine Total 200 ml 1100 ml # Voids 4 Physical Exam GENERAL: Well-nourished, well-developed patient. SKIN: Warm and dry. Groin sites soft without bruising or bleeding. HEAD: Normocephalic. EYES: No scleral icterus. No injection or drainage. NECK: Supple, trachea midline. No JVD or lymphadenopathy. CARDIOVASCULAR: Regular rate and rhythm without murmurs, gallops, or rubs. RESPIRATORY: Breath sounds equal bilaterally. No accessory muscle use. GASTROINTESTINAL: Abdomen soft, non-tender, nondistended. EXTREMITIES: No cyanosis, or edema. NEUROLOGICAL: Awake, alert, and oriented x 3. Non-focal. Laboratory Laboratory Tests Test 04/11/17 06:01 Prothrombin Time 11.4 SEC Prothromb Time International 1.0 RATIO Ratio Activated Partial 25.4 SEC Thromboplast Time Imaging Last Impressions Myocardial Perfusion Scan Nuc Med 04/07/17 0000 Signed Impressions: Service Date/Time: Friday, April 07, 2017 12:28 - CONCLUSION: No areas of ischemia are seen. RISK CATEGORY: Low (<1%% Annual Mortality Rate) Dimitry Renee MD Chest X-Ray 04/06/17 1522 Signed Impressions: Service Date/Time: Thursday, April 06, 2017 15:39 - CONCLUSION: No acute disease. Murray Stevens MD FACR Assessment and Plan Problem List: (1) Ventricular tachycardia Assessment and Plan: No recurrence overnight, status post VT ablation. (2) S/P radiofrequency ablation operation for arrhythmia Assessment and Plan: Groin sites stable. Can be discharged home from EP standpoint when cleared by managing team per my discussion with Dr. Solomon. Follow up with him in 3 weeks. Domenica Torres Apr 11, 2017 08:50
[2017-04-11] MEDS: ASPIRIN EC 81 MG TABEC PO SCH (09:29)
[2017-04-11] MEDS: METOPROLOL SUCCINATE 25 MG EXTENDED RELEASE TAB PO SCH (09:29)
--- NOTE | 2017-04-11 23:05 | EKG ---
Date Performed: 04/11/2017 Time Performed: 05:05:28 PTAGE: 46 years EKG: Sinus rhythm Septal T wave changes are nonspecific Borderline ECG NO PREVIOUS TRACING DOCTOR: Norah Castaneda Interpretating Date/Time 04/11/2017 23:04:20
--- NOTE | 2017-04-11 23:18 | EKG ---
Date Performed: 04/10/2017 Time Performed: 22:17:28 PTAGE: 46 years EKG: Sinus rhythm Normal ECG NO PREVIOUS TRACING DOCTOR: Norah Castaneda Interpretating Date/Time 04/11/2017 23:15:45
--- NOTE | 2017-04-12 13:28 | HHI.DS ---
Discharge Summary Admission Date Apr 06, 2017 at 19:16 Discharge Date: Apr 11, 2017 Admitting Diagnosis ventricular tachycardia (1) Ventricular tachycardia Diagnosis: Principal Brief History Patient is a pleasant 46-year-old female with no significant past medical history. Patient reports that over the last few weeks she has been suffering from dizzy spells lasting a few minutes, self limiting. These episodes of dizziness are associated with palpitations. Patient was undergoing workup with cardiology, Dr. Kai Brown. Patient had an outpatient event monitor which was interpreted 04/06/[address] Brown. Apparently the event monitor showed episodes of sustained ventricular tachycardia. Patient denies chest pain, shortness of breath, nausea or vomiting, or diaphoresis. There is no family history of congenital heart disease. Patient denies use of illicit street drugs or substantial caffeine. Patient directed by Dr. Brown to come to the ER. Patient was started on amiodarone drip. Patient started on metoprolol 25 mg by mouth twice a day which has now been increased to 50 mg twice a day by cardiology. Patient had serial cardiac enzymes which were normal. Patient had serial EKGs which did not show acute ischemic changes. CBC/BMP: 04/08/17 0410 Hospital Course -- Patient has been experiencing self-limiting episodes of dizziness associated with palpitations - Outpatient event monitor interpreted by cardiology, Dr. Kai Brown cardiology showed sustained ventricular tachycardia. Patient directed to the emergency room. - Patient initially placed on amiodarone (04/06 - 04/08/17) - Metoprolol, initially 25 mg PO twice a day, increased to 50 mg PO BID (04/07) - Serial cardiac enzymes were negative - Serial EKGs did not show any acute ischemic changes - Thyroid functions are within normal limits - Echocardiogram --> EF 60-65% - Lexiscan (04/07/17) --> negative study - Telemetry reviewed NO sustained VT - pt denies dizziness or palpitations currently - Aspirin 81 mg PO daily -s/p ep ablation. Dr Solomon lowered metoprolol to 25mg daily XL. Pt Condition on Discharge: Stable Discharge Disposition: Discharge Home Discharge Instructions DIET: Follow Instructions for: As Tolerated, No Restrictions Activities you can perform: See Additionl Instruction Other Activity Instructions: see Dr Solomon post procedure instruction sheet. Follow up Referrals: Cardiology - 1 Week with Eric Solomon MD PCP Follow-up - [address] Jefferson New Medications: Aspirin (Adult Aspirin EC Low Strength) 81 Mg Tabec 81 MG PO DAILY prophylaxis #0 TAB Metoprolol Succinate ER 24 HR (Metoprolol Succinate ER 24 HR) 25 Mg Tab 25 MG PO DAILY tachycardia #30 Ref 3 TAB Continued Medications: Multiple Vitamin (Multiple Vitamin) 1 Tab 1 TAB PO DAILY Nutritional Supplement Ref 0 TAB John Sanders MD Apr 12, 2017 13:28
== END 2017-04-11 16:03 | disposition home or self-care (01) | DRG 274 ==
LOC: NEPE 14:59 → NEDA 19:16 → HCIS 22:15
PROVIDERS: ADMIT Hospitalist; ATTEND Hospitalist
PROC: 02K83ZZ Map Conduction Mechanism, Percutaneous Approach (ICD-10-PCS; 2017-04-10)
PROC: 5A2204Z Restoration of Cardiac Rhythm, Single (ICD-10-PCS; 2017-04-10)
PROC: 02583ZZ Destruction of Conduction Mechanism, Percutaneous Approach (ICD-10-PCS; principal; 2017-04-10 16:00)
DX: I47.2 Ventricular tachycardia (principal); Z79.82 Long term (current) use of aspirin; I49.3 Ventricular premature depolarization; Z79.899 Other long term (current) drug therapy
CPT/HCPCS: 71010; 78452; 80048; 80053; 80061; 82550; 83735; 84439; 84443; 84484; 84702; 84703; 85025; 85610; 85730; 92960; 93005; 93017; 93306; 93623; 93654; 96361; 96365; 96376; A9502; C1730; C1732; C2630; J0282; J1650; J2250; J2785; J3010; J7030; J7060

== ENCOUNTER 2017-05-05 22:02 | Emergency (ER) | payer OTHER ==
[~2017-05-05] VITALS: Ht 162.6 cm; Wt 77.0 kg
[~2017-05-05 22:02] MED LIST: ASPI-99 PO; METO25TA6 PO; MULTTAB67 PO
[2017-05-05 22:05] VITALS: BP 158/84; PULSE 84; RESP 16; TEMP 98.3
[2017-05-05 22:28] VITALS: BP 132/97; PULSE 80; RESP 18; O2SAT 100
[2017-05-05] MEDS ORDERED: ASPIRIN 81 MG CHEW TAB PO ONE (22:45)
[2017-05-05] MEDS ORDERED: SODIUM CHLORIDE 0.9% FLUSH 10 ML FLUSH IVF PRN (22:45)
[2017-05-05 22:46] VITALS: O2SAT 98
[2017-05-05 23:02] LABS: BASOPHIL % 0.5 % (0.0-2.0); EOSINOPHIL # 0.1 TH/MM3 (0-0.4); EOSINOPHIL % 1.2 % (0.0-4.0); HEMATOCRIT 38.2 % (35.0-46.0); HEMO FLAGS DIFF FINAL; LYMPH % 34.7 % (9.0-44.0); LYMPHOCYTE # 1.8 TH/MM3 (1.0-4.8); MEAN CELL VOLUME 90.7 FL (80.0-100.0); MEAN CORPUSCULAR HGB CONC 35.3 % (32.0-36.0); MONO % 6.9 % (0.0-8.0); NEUT % 56.7 % (16.0-70.0); PLATELET COUNT 170 TH/MM3 (150-450); RED BLOOD COUNT 4.21 MIL/MM3 (4.00-5.30); RED CELL DISTRIBUTION WIDTH 12.7 % (11.6-17.2); WHITE BLOOD COUNT 5.3 TH/MM3 (4.0-11.0)
--- NOTE | 2017-05-05 23:29 | RADRPT ---
EXAM DATE/TIME: 05/05/2017 22:50 [facility] COMPARISON: CHEST SINGLE AP, April 06, 2017, 15:39. INDICATIONS : Cardiac palpitations MEDICAL HISTORY : Cardiac palpitations, V tach SURGICAL HISTORY : Cardiac ablation 1 month ago ENCOUNTER: Initial ACUITY: 1 day PAIN SCORE: 3/10 LOCATION: Left chest FINDINGS: A single view of the chest demonstrates the lungs to be symmetrically aerated without evidence of mas s, infiltrate or effusion. The cardiomediastinal contours are unremarkable. Osseous structures are intact. CONCLUSION: No acute disease. Dimitry Ramirez MD on May 05, 2017 at 23:27 Board Certified Radiologist. This report was verified electronically.
[2017-05-06 00:29] LABS: ANION GAP 5 MEQ/L (5-15); BETA HCG QUANT LESS THAN 1 MIU/ML (0-5); BICARBONATE 28.6 MEQ/L (21.0-32.0); BLOOD UREA NITROGEN 9 MG/DL (7-18); CHLORIDE 103 MEQ/L (98-107); CREATINE KINASE 74 U/L (26-192); GLOMERULAR FILTRATION RATE 90 ML/MIN (>89); MAGNESIUM 2.1 MG/DL (1.5-2.5); POTASSIUM 3.2 MEQ/L (3.5-5.1); SODIUM (NA) 137 MEQ/L (136-145)
--- NOTE | 2017-05-06 00:44 | PD ---
HPI Chief Complaint: Cardiac Complaint Time Seen by Provider: 22:40 Travel History International Travel<30 days: No Contact w/Intl Traveler<30days: No Traveled to known affect area: No History of Present Illness HPI 46-year-old female presents to the emergency department by private transportation the care of family for evaluation of left-sided chest discomfort 2/10 in intensity with episodes of skipped beat or hard skipped beat periodically associated with dizziness. Patient's had issues with 2/10 left- sided chest discomfort since undergoing elective cardiac ablation for right ventricular outflow tract tachycardia arrhythmia performed by Dr. Solomon approximately one month ago. Patient's also had intermittent dizziness and more recently has identified an occasional skipped beat. This evening patient felt increased dizziness and did not notice increase frequency of skipped beats but became concerned as she had similar type symptoms when she required hospitalization a month ago for ventricular tachycardia. Patient continues to take prescription patient's had no recent shortness of breath referred neck jaw back shoulder arm pain or diaphoresis. Patient had brief episode of nausea this evening. Patient denies any known coronary vessel disease hypertension dyslipidemia or tobaccoism. He has no family history of heart disease or sudden . [facility] Past Medical History Narrative Medical Ventricular tachycardia/right ventricular out flow tract tachyarrhythmia status post ablation; no tobacco use; nursing notes reviewed Medical History: Denies Significant Hx Tetanus Vaccination: < 5 Years Influenza Vaccination: No ?: Not LMP: 04/28/17 : 3 Para: 2 : 1 Past Surgical History Cardiac Surgery: Yes (ablation ) Social History Alcohol Use: Yes Tobacco Use: No Substance Use: No Allergies-Medications (Allergen,Severity, Reaction): Coded Allergies: No Known Allergies (Unverified , 05/05/17) Reported Meds & Prescriptions Reported Meds & Active Scripts Active Adult Aspirin EC Low Strength (Aspirin) 81 Mg Tabec 81 Mg PO DAILY Metoprolol Succinate ER 24 HR (Metoprolol Succinate) 25 Mg Tab 25 Mg PO DAILY Reported Multiple Vitamin 1 Tab 1 Tab PO DAILY Review of Systems Except as stated in HPI: all other systems reviewed are Neg General / Constitutional: No: Fever, Chills HENT: No: Congestion Cardiovascular: Positive: Chest Pain or Discomfort Respiratory: No: Shortness of Breath Gastrointestinal: No: Nausea Genitourinary: No: Dysuria Musculoskeletal: No: Pain Skin: No Rash Neurologic: Positive: Dizziness Psychiatric: No: Anxiety Hematologic/Lymphatic: No: Lymph Node Enlargement Physical Exam Narrative GENERAL: Well-developed well-nourished female in no acute distress no respiratory distress SKIN: Warm and dry. HEAD: Normocephalic. EYES: No scleral icterus. No injection or drainage. NECK: Supple, trachea midline. No JVD or lymphadenopathy. CARDIOVASCULAR: Regular rate and rhythm without murmurs, gallops, or rubs. RESPIRATORY: Breath sounds equal bilaterally. No accessory muscle use. GASTROINTESTINAL: Abdomen soft, non-tender, nondistended. MUSCULOSKELETAL: No cyanosis, or edema. BACK: Nontender without obvious deformity. No CVA tenderness. Data Data Last Documented VS Vital Signs Date Time Temp Pulse Resp B/P Pulse Ox O2 Delivery O2 Flow Rate FiO2 05/05/17 22:46 98 Room Air 05/05/17 22:28 80 18 132/97 05/05/17 22:05 98.3 Orders Electrocardiogram (05/05/17 22:40) Basic Metabolic Panel (Bmp) (05/05/17 22:40) Ckmb (Isoenzyme) Profile (05/05/17 22:40) Complete Blood Count With Diff (05/05/17 22:40) Magnesium (Mg) (05/05/17 22:40) Prothrombin Time / Inr (Pt) (05/05/17 22:40) Act Partial Throm Time (Ptt) (05/05/17 22:40) Troponin I (05/05/17 22:40) Chest, Single Ap (05/05/17 22:40) Ecg Monitoring (05/05/17 22:40) Bilateral Bp Monitoring (05/05/17 22:40) Iv Access Insert/Monitor (05/05/17 22:40) Oximetry (05/05/17 22:40) Oxygen Administration (05/05/17 22:40) Aspirin Chew (Aspirin Chew) (05/05/17 22:45) Sodium Chloride 0.9% Flush (Ns Flush) (05/05/17 22:45) Thyroid Stimulating Hormone (05/05/17 22:40) Beta Hcg (Quant/Titer) (05/05/17 22:40) Potassium Chloride (Kcl) (05/06/17 00:45) Labs Laboratory Tests Test 05/05/17 22:50 White Blood Count 5.3 TH/MM3 Red Blood Count 4.21 MIL/MM3 Hemoglobin 13.5 GM/DL Hematocrit 38.2 % Mean Corpuscular Volume 90.7 FL Mean Corpuscular Hemoglobin 32.0 PG Mean Corpuscular Hemoglobin 35.3 % Concent Red Cell Distribution Width 12.7 % Platelet Count 170 TH/MM3 Mean Platelet Volume 8.5 FL Neutrophils (%) (Auto) 56.7 % Lymphocytes (%) (Auto) 34.7 % Monocytes (%) (Auto) 6.9 % Eosinophils (%) (Auto) 1.2 % Basophils (%) (Auto) 0.5 % Neutrophils # (Auto) 3.0 TH/MM3 Lymphocytes # (Auto) 1.8 TH/MM3 Monocytes # (Auto) 0.4 TH/MM3 Eosinophils # (Auto) 0.1 TH/MM3 Basophils # (Auto) 0.0 TH/MM3 CBC Comment DIFF FINAL Differential Comment Prothrombin Time 11.0 SEC Prothromb Time International 1.0 RATIO Ratio Activated Partial 26.0 SEC Thromboplast Time Sodium Level 137 MEQ/L Potassium Level 3.2 MEQ/L Chloride Level 103 MEQ/L Carbon Dioxide Level 28.6 MEQ/L Anion Gap 5 MEQ/L Blood Urea Nitrogen 9 MG/DL Creatinine 0.70 MG/DL Estimat Glomerular Filtration 90 ML/MIN Rate Random Glucose 104 MG/DL Calcium Level 9.0 MG/DL Magnesium Level 2.1 MG/DL Total Creatine Kinase 74 U/L Troponin I LESS THAN 0.02 NG/ML Thyroid Stimulating Hormone 1.760 uIU/ML 3rd Gen Human Chorionic Gonadotropin, LESS THAN 1 Quant MIU/ML MDM Medical Decision Making Medical Screen Exam Complete: Yes Emergency Medical Condition: Yes Medical Record Reviewed: Yes Interpretation(s) EKG normal sinus rhythm no acute ST elevation or injury pattern change or ectopy noted Troponin I: Less than 0.02, not elevated; CK: 74, not elevated TSH: Values in normal range Last Impressions Chest X-Ray 05/05/17 2240 Signed Impressions: Service Date/Time: Friday, May 05, 2017 22:50 - CONCLUSION: No acute disease. Dimitry Ramirez MD CBC & BMP Diagram 05/05/17 22:50 Vital Signs Date Time Temp Pulse Resp B/P Pulse Ox O2 Delivery O2 Flow Rate FiO2 05/05/17 22:46 98 Room Air 05/05/17 22:46 98 Room Air 05/05/17 22:28 80 18 132/97 100 Room Air 05/05/17 22:05 98.3 84 16 158/84 Room Air Differential Diagnosis Palpitations, arrhythmia, electronic disturbance, ACS, viral syndrome, dehydration, anemia Narrative Course 46-year-old female presents to the emergency department complaining of dizziness intermittent palpitations subacute daily left-sided 2/10 chest discomfort presently asymptomatic; patient with recent ablation for right ventricular outflow tachyarrhythmia with ongoing episodes of palpitations dizziness and chronic left anterior chest discomfort since procedure and presents now because of concern of persistent symptoms and some ongoing dizziness today. Patient presently asymptomatic temperature chronic discomfort to the left anterior chest she's had since her procedure that is reproducible. Plan is to put patient on graduate rn obtained EKG obtained IV access collected specimens sent for resulting patient administered 1 dose of aspirin. Patient resting comfortably voicing no concerns or complaints lab values resulted and found to be grossly within normal limits. Patient's case has been discussed with on-call paraffin plant operator Dr. Coley call covering for patient's paraffin plant operator Dr. Solomon; patient encouraged to follow-up with her paraffin plant operator as scheduled on Sunday has had oral potassium replacement and is encouraged to add potassium containing foods and beverages to dietary intake. Patient informed of lab results and consultation with on-call cardiology and recommendation to keep planned scheduled appointment with Dr Solomon on Sunday and return to the emergency department for for any concerns. Diagnosis Primary Impression: Intermittent palpitations Additional Impression: Hypokalemia Referrals: Administrative Services Specialist 2 days Keep scheduled appointment for Sunday Patient Instructions: General Instructions Additional Instructions: Increase intake of food and beverages containing potassium Increase fluid hydration Keep scheduled appointment as planned on Sunday with Dr. Solomon Return to the emergency department for any concerns or change in condition Continue current medications as per the prescribed Med/Other Pt SpecificInfo: No Change to Meds Disposition: 01 DISCHARGE HOME Condition: Stable Lorene Franco MD May 06, 2017 00:44
[2017-05-06] MEDS ORDERED: POTASSIUM CHLORIDE 20 MEQ CONTROLLED RELEASE TAB PO ONE (00:45)
--- NOTE | 2017-05-06 18:21 | EKG ---
Date Performed: 05/05/2017 Time Performed: 22:26:21 PTAGE: 46 years EKG: Sinus rhythm NORMAL ECG INTERPRETATION BASED ON A DEFAULT AGE OF 40 YEARS PREVIOUS TRACING 04/03/2017 @ 05.05.28 Compared to prior tracing no significant change DOCTOR: Ton Mccormick Interpretating Date/Time 05/06/2017 18:20:55
== END 2017-05-06 01:22 | disposition home or self-care (01) ==
LOC: NEPC 22:02
DX: R00.2 Palpitations (principal); E87.6 Hypokalemia
CPT/HCPCS: 71010; 80048; 82550; 83735; 84443; 84484; 84702; 85025; 85610; 85730; 93005; 99285

== ENCOUNTER 2017-05-19 11:21 | Emergency (ER) | payer OTHER ==
[~2017-05-19] VITALS: Ht 162.6 cm; Wt 71.8 kg
[2017-05-19 11:44] VITALS: BP 121/86; PULSE 97; RESP 18; TEMP 99; O2SAT 97
--- NOTE | 2017-05-19 11:56 | PD ---
HPI Chief Complaint: Cardiac Complaint Time Seen by Provider: 11:35 Travel History International Travel<30 days: No Contact w/Intl Traveler<30days: No Traveled to known affect area: No History of Present Illness HPI The patient was seen and examined in the presence of the nurse. This patient complains of palpitations. She has history of recent cardiac ablation. No syncope or chest pain. Symptoms severity is mild to moderate. No alleviating factors. She went to an urgent care prior to this and had an EKG which revealed 1 PVC and sinus rhythm and she was sent here. Duration 2 days. No alleviating factors. She had caffeine this morning. PFSH Past Medical History : 3 Para: 2 : 1 Past Surgical History Cardiac Surgery: Yes (ablation ) Social History Alcohol Use: Yes Tobacco Use: No Substance Use: No Allergies-Medications (Allergen,Severity, Reaction): Coded Allergies: No Known Allergies (Unverified , 05/05/17) Reported Meds & Prescriptions Reported Meds & Active Scripts Active Adult Aspirin EC Low Strength (Aspirin) 81 Mg Tabec 81 Mg PO DAILY Metoprolol Succinate ER 24 HR (Metoprolol Succinate) 25 Mg Tab 25 Mg PO DAILY Reported Multiple Vitamin 1 Tab 1 Tab PO DAILY Review of Systems General / Constitutional: No: Fever Eyes: No: Visual changes HENT: No: Headaches Cardiovascular: Positive: Palpitations, Irregular Rhythm, Tachycardia, No: Chest Pain or Discomfort Respiratory: No: Shortness of Breath Gastrointestinal: No: Abdominal Pain Genitourinary: No: Dysuria Musculoskeletal: No: Pain Skin: No Rash Neurologic: No: Weakness Psychiatric: No: Depression Endocrine: No: Polydipsia Hematologic/Lymphatic: No: Easy Bruising Physical Exam Narrative GENERAL: Well-nourished, well-developed patient in no apparent distress. SKIN: Focused skin assessment reveals no rash and nodules. Skin is Warm and dry. HEAD: Atraumatic. Normocephalic. EYES: Pupils equal and round. No scleral icterus. No injection or drainage. ENT: No nasal bleeding or discharge. Mucous membranes pink and moist. NECK: Trachea midline. No JVD. CARDIOVASCULAR: Regular rate and rhythm without murmur. Extremities showed no edema or varicosities. She has a periodic ectopic beat. Heart rate 96 RESPIRATORY: No accessory muscle use. Clear to auscultation. Breath sounds equal bilaterally. GASTROINTESTINAL: Abdomen soft, non-tender, nondistended. Hepatic and splenic margins not palpable. MUSCULOSKELETAL: No obvious deformities. No clubbing. No cyanosis. No edema. NEUROLOGICAL: Awake and alert. No obvious cranial nerve deficits. Motor grossly within normal limits. Normal speech. PSYCHIATRIC: Appropriate mood and affect; insight and judgment normal. Data Data Last Documented VS Vital Signs Date Time Temp Pulse Resp B/P Pulse Ox O2 Delivery O2 Flow Rate FiO2 05/19/17 11:44 99.0 97 18 121/86 97 Orders Iv Access Insert/Monitor (05/19/17 11:44) Complete Blood Count With Diff (05/19/17 11:44) Basic Metabolic Panel (Bmp) (05/19/17 11:44) Emergency Registrar / Telemetry [email or web address] (05/19/17 11:44) Electrocardiogram (05/19/17 ) Labs Laboratory Tests Test 05/19/17 12:02 White Blood Count 5.6 TH/MM3 Red Blood Count 4.49 MIL/MM3 Hemoglobin 13.7 GM/DL Hematocrit 40.9 % Mean Corpuscular Volume 91.1 FL Mean Corpuscular Hemoglobin 30.5 PG Mean Corpuscular Hemoglobin 33.5 % Concent Red Cell Distribution Width 12.7 % Platelet Count 167 TH/MM3 Mean Platelet Volume 8.5 FL Neutrophils (%) (Auto) 78.6 % Lymphocytes (%) (Auto) 15.7 % Monocytes (%) (Auto) 3.6 % Eosinophils (%) (Auto) 0.2 % Basophils (%) (Auto) 1.9 % Neutrophils # (Auto) 4.4 TH/MM3 Lymphocytes # (Auto) 0.9 TH/MM3 Monocytes # (Auto) 0.2 TH/MM3 Eosinophils # (Auto) 0.0 TH/MM3 Basophils # (Auto) 0.1 TH/MM3 CBC Comment AUTO DIFF Sodium Level 137 MEQ/L Potassium Level 4.7 MEQ/L Chloride Level 107 MEQ/L Carbon Dioxide Level 23.2 MEQ/L Anion Gap 7 MEQ/L Blood Urea Nitrogen 11 MG/DL Creatinine 0.65 MG/DL Estimat Glomerular Filtration 99 ML/MIN Rate Random Glucose 105 MG/DL Calcium Level 9.0 MG/DL [facility] Medical Decision Making Medical Screen Exam Complete: Yes Emergency Medical Condition: Yes Medical Record Reviewed: Yes Differential Diagnosis Cardiac arrhythmia, palpitations, PVCs Narrative Course I have reviewed the patient's electronic medical record. I read her cardiac ablation note. She was seen in the ER for the same thing 2 weeks ago IV placed CBC is normal Metabolic profile is normal I reviewed her EKG which shows sinus rhythm and has 0 PVCs or ectopy Extended cardiac monitoring reveals sinus rhythm between 90 and 100 with a rare PVC. She never has more than one PVC on the screen at any one time. Blood pressure is normal I think she should double her metoprolol which is a very tiny dose of 12.5 daily and check and record her pressure daily She should limit cardiac stimulants and activity and call her carton and can supply supervisor Sunday morning Diagnosis Primary Impression: Intermittent palpitations Additional Impression: PVC's (premature ventricular contractions) Additional Instructions: The patient was advised to follow up with their carton and can supply supervisor and return if they worsen. Check and record blood pressure daily Double metoprolol to 25 mg daily Med/Other Pt SpecificInfo: Other Disposition: 01 DISCHARGE HOME Condition: Stable Vikas Maldonado MD May 19, 2017 11:56
[2017-05-19 12:16] LABS: AUTOMATED NEUTROPHIL # 4.4 TH/MM3 (1.8-7.7); BASOPHIL # 0.1 TH/MM3 (0-0.2); BASOPHIL % 1.9 % (0.0-2.0); EOSINOPHIL % 0.2 % (0.0-4.0); HEMATOCRIT 40.9 % (35.0-46.0); LYMPH % 15.7 % (9.0-44.0); LYMPHOCYTE # 0.9 TH/MM3 (1.0-4.8); MEAN CELL VOLUME 91.1 FL (80.0-100.0); MEAN CORPUSCULAR HEMOGLOBIN 30.5 PG (27.0-34.0); MEAN CORPUSCULAR HGB CONC 33.5 % (32.0-36.0); MONO % 3.6 % (0.0-8.0); NEUT % 78.6 % (16.0-70.0); PLATELET COUNT 167 TH/MM3 (150-450); RED BLOOD COUNT 4.49 MIL/MM3 (4.00-5.30); RED CELL DISTRIBUTION WIDTH 12.7 % (11.6-17.2); WHITE BLOOD COUNT 5.6 TH/MM3 (4.0-11.0)
[2017-05-19 12:17] LABS: HEMO FLAGS AUTO DIFF
[2017-05-19 12:19] LABS: POTASSIUM 4.7 MEQ/L (3.5-5.1)
[2017-05-19 12:20] LABS: BICARBONATE 23.2 MEQ/L (21.0-32.0)
[2017-05-19 12:43] VITALS: BP 116/79; PULSE 94; O2SAT 97
[2017-05-19 12:50] LABS: BANDS 2 % (0-6); EOSINOPHILS 1 % (0-4); NEUTROPHIL # MANUAL DIFF 4.5 TH/MM3 (1.8-7.7); POLYS (SEG NEUTROPHILS) 78 % (16-70); SCAN/DIFF FINAL DIFF MANUAL; WBC DIFF SAMPLE 100
--- NOTE | 2017-05-20 17:13 | EKG ---
Date Performed: 05/19/2017 Time Performed: 11:26:29 PTAGE: 46 years EKG: SINUS TACHYCARDIA Since previous tracing, no significant change noted ABNORMAL RHYTHM ECG PREVIOUS TRACING : 05/05/2017 22.26.21 DOCTOR: Robbie Spaulding Interpretating Date/Time 05/20/2017 17:13:18
== END 2017-05-19 12:49 | disposition home or self-care (01) ==
LOC: PHED 11:21
DX: I49.3 Ventricular premature depolarization (principal)
CPT/HCPCS: 80048; 85007; 85027; 93005

== ENCOUNTER 2017-07-06 11:18 | Emergency (ER) | payer OTHER ==
[~2017-07-06] VITALS: Ht 162.6 cm; Wt 71.5 kg
[2017-07-06 11:19] VITALS: BP 125/80; PULSE 128; RESP 14; TEMP 98.9; O2SAT 97
--- NOTE | 2017-07-06 11:27 | PD ---
Physical Exam Time Seen by Provider: 11:25 Narrative 46-year-old female presents post cardiac ablation by Dr. Gu from May 07 with with complaint of feeling lightheaded, trembly, heart palpitations, and occasional chest pressure since yesterday. Denies shortness of breath. Denies syncope. Patient seen in triage. VS reviewed. Patient awaiting bed placement. Data Data Last Documented VS Vital Signs Date Time Temp Pulse Resp B/P (MAP) Pulse Ox O2 Delivery O2 Flow Rate FiO2 07/06/17 11:19 98.9 128 14 125/80 (95) 97 Orders Orders Electrocardiogram (07/06/17 ) MDM Supervised Visit with MELINDA: Taisha Spain Jul 06, 2017 11:27
[2017-07-06 11:36] VITALS: BP_SYST 137; BP_SYST 156; BP_DIAS 90; BP_DIAS 95; PULSE 95; RESP 18; O2SAT 100
[2017-07-06] MEDS ORDERED: SODIUM CHLORIDE 0.9% FLUSH 10 ML FLUSH IVF PRN (11:45)
[2017-07-06] MEDS ORDERED: SODIUM CHLOR 0.9% 1000 ML INJ 1,000 ML IV SCH (11:45)
[2017-07-06 12:19] LABS: AUTOMATED NEUTROPHIL # 3.9 TH/MM3 (1.8-7.7); BASOPHIL % 0.1 % (0.0-2.0); EOSINOPHIL % 0.2 % (0.0-4.0); HEMATOCRIT 40.8 % (35.0-46.0); HEMO FLAGS DIFF FINAL; LYMPH % 19.8 % (9.0-44.0); MEAN CELL VOLUME 92.6 FL (80.0-100.0); MEAN CORPUSCULAR HEMOGLOBIN 30.6 PG (27.0-34.0); MONO % 5.3 % (0.0-8.0); NEUT % 74.6 % (16.0-70.0); PLATELET COUNT 158 TH/MM3 (150-450); RED BLOOD COUNT 4.41 MIL/MM3 (4.00-5.30); RED CELL DISTRIBUTION WIDTH 12.5 % (11.6-17.2); WHITE BLOOD COUNT 5.2 TH/MM3 (4.0-11.0)
[2017-07-06 12:22] LABS: BLOOD, URINE NEG (NEG); COMMENT (UR) CULT NOT INDICATED; CULTURE IF INDICATED CULT NOT INDICATED; GLUCOSE,URINE NEG (NEG); KETONE, URINE NEG (NEG); MUCUS URINE FEW /lpf (OCC); NITRITE,URINE NEG (NEG); SQUAMOUS EPITHELIAL CELL URINE 1 /hpf (0-5); URINE COLOR YELLOW (YELLW/STRAW)
[2017-07-06 12:34] LABS: ANION GAP 5 MEQ/L (5-15); BICARBONATE 26.9 MEQ/L (21.0-32.0); BLOOD UREA NITROGEN 8 MG/DL (7-18); CHLORIDE 107 MEQ/L (98-107); GLOMERULAR FILTRATION RATE 94 ML/MIN (>89); MAGNESIUM 2.1 MG/DL (1.5-2.5); POTASSIUM 4.1 MEQ/L (3.5-5.1); SODIUM (NA) 139 MEQ/L (136-145)
--- NOTE | 2017-07-06 12:38 | PD ---
HPI Chief Complaint: Cardiac Complaint Time Seen by Provider: 11:35 Travel History International Travel<30 days: No Contact w/Intl Traveler<30days: No Traveled to known affect area: No History of Present Illness HPI 46 yo female that presents to the ED for evaluation of palpitations, dizzyness, weakness since sunday night. Patient has a history of SVT with admission and ablation by her general service technician Dr Solomon on April of this year. She has had episodes of palpitations since and her metoprolol has been changed accordingly. She denies any chest pain. No SOB. she states she feels dizzy and weak which is similar to her previous episodes. Tried to see her general service technician but he is booked for two weeks so she came here for evaluation. She states she had a holter monitor and she returned it on sunday. Per patient she did have some anxiety because of it but she was fine until that night when the symptoms started. She is taking her metoprolol 25 mg daily and symptoms continue. She states she has completely cut off her caffeine and does not drink coffee or soda anymore. No recent travel. No control use. No thyroid disorder. No urinary or BM issues. No N/V/D. No trauma. No heard disease other than SVT. she takes an aspirin every day. PFSH Past Medical History Cardiovascular Problems: Yes (ABLATION 05/02) Diminished Hearing: No ?: Unknown : 3 Para: 2 : 1 Past Surgical History Cardiac Surgery: Yes (ablation ) Social History Alcohol Use: No Tobacco Use: No Substance Use: No Allergies-Medications (Allergen,Severity, Reaction): Coded Allergies: No Known Allergies (Unverified , 07/06/17) Reported Meds & Prescriptions Reported Meds & Active Scripts Active Vistaril (Hydroxyzine Pamoate) 50 Mg Cap 50 Mg PO QID PRN Adult Aspirin EC Low Strength (Aspirin) 81 Mg Tabec 81 Mg PO DAILY Metoprolol Succinate ER 24 HR (Metoprolol Succinate) 25 Mg Tab 25 Mg PO DAILY Reported Multiple Vitamin 1 Tab 1 Tab PO DAILY Review of Systems Except as stated in HPI: all other systems reviewed are Neg Physical Exam Narrative GENERAL: SKIN: Warm and dry. HEAD: Atraumatic. Normocephalic. EYES: Pupils equal and round. No scleral icterus. No injection or drainage. ENT: No nasal bleeding or discharge. Mucous membranes pink and moist. Tongue is midline. No uvula deviation NECK: Trachea midline. No JVD. CARDIOVASCULAR: Tachycardic rate and rhythm. No murmurs, S3, S4. RESPIRATORY: No accessory muscle use. Clear to auscultation. Breath sounds equal bilaterally. GASTROINTESTINAL: Abdomen soft, non-tender, nondistended. Hepatic and splenic margins not palpable. MUSCULOSKELETAL: Extremities without clubbing, cyanosis, or edema. No obvious deformities. Full ROM of the upper and lower extremities bilaterally. 2+ pulses bilaterally. NEUROLOGICAL: Awake and alert. No obvious cranial nerve deficits. Motor grossly within normal limits. Five out of 5 muscle strength in the arms and legs. Normal speech. PSYCHIATRIC: Appropriate mood and affect; insight and judgment normal. Data Data Last Documented VS Vital Signs Date Time Temp Pulse Resp B/P (MAP) Pulse Ox O2 Delivery O2 Flow Rate FiO2 07/06/17 14:38 84 19 131/83 (99) 100 Room Air 07/06/17 11:19 98.9 Orders Orders Electrocardiogram (07/06/17 11:31) Ecg Monitoring (07/06/17 11:31) Bilateral Bp Monitoring (07/06/17 11:31) Iv Access Insert/Monitor (07/06/17 11:31) Oximetry (07/06/17 11:31) Oxygen Administration (07/06/17 11:31) Sodium Chloride 0.9% Flush (Ns Flush) (07/06/17 11:45) Complete Blood Count With Diff (07/06/17 11:45) Basic Metabolic Panel (Bmp) (07/06/17 11:45) Ckmb (Isoenzyme) Profile (07/06/17 11:45) Troponin I (07/06/17 11:45) Urinalysis - C+S If Indicated (07/06/17 11:45) D-Dimer (07/06/17 11:45) Magnesium (Mg) (07/06/17 11:45) Thyroid Stimulating Hormone (07/06/17 11:45) Chest, Single Ap (07/06/17 11:45) Sodium Chlor 0.9% 1000 Ml Inj (Ns 1000 M (07/06/17 11:45) Labs Laboratory Tests Test 07/06/17 11:15 07/06/17 11:45 White Blood Count 5.2 TH/MM3 Red Blood Count 4.41 MIL/MM3 Hemoglobin 13.5 GM/DL Hematocrit 40.8 % Mean Corpuscular Volume 92.6 FL Mean Corpuscular Hemoglobin 30.6 PG Mean Corpuscular Hemoglobin Concent 33.0 % Red Cell Distribution Width 12.5 % Platelet Count 158 TH/MM3 Mean Platelet Volume 8.1 FL Neutrophils (%) (Auto) 74.6 % Lymphocytes (%) (Auto) 19.8 % Monocytes (%) (Auto) 5.3 % Eosinophils (%) (Auto) 0.2 % Basophils (%) (Auto) 0.1 % Neutrophils # (Auto) 3.9 TH/MM3 Lymphocytes # (Auto) 1.0 TH/MM3 Monocytes # (Auto) 0.3 TH/MM3 Eosinophils # (Auto) 0.0 TH/MM3 Basophils # (Auto) 0.0 TH/MM3 CBC Comment DIFF FINAL Differential Comment D-Dimer Quantitative (PE/DVT) 0.19 MG/L FEU Blood Urea Nitrogen 8 MG/DL Creatinine 0.68 MG/DL Random Glucose 112 MG/DL Calcium Level 8.7 MG/DL Magnesium Level 2.1 MG/DL Sodium Level 139 MEQ/L Potassium Level 4.1 MEQ/L Chloride Level 107 MEQ/L Carbon Dioxide Level 26.9 MEQ/L Anion Gap 5 MEQ/L Estimat Glomerular Filtration Rate 94 ML/MIN Total Creatine Kinase 52 U/L Troponin I LESS THAN 0.02 NG/ML Thyroid Stimulating Hormone 3rd Gen 0.529 uIU/ML Urine Color YELLOW Urine Turbidity CLEAR Urine pH 8.0 Urine Specific [place] 1.007 Urine Protein NEG mg/dL Urine Glucose (UA) NEG mg/dL Urine Ketones NEG mg/dL Urine Occult Blood NEG Urine Nitrite NEG Urine Bilirubin NEG Urine Urobilinogen LESS THAN 2.0 MG/DL Urine Leukocyte Esterase NEG Urine RBC LESS THAN 1 /hpf Urine WBC 1 /hpf Urine Squamous Epithelial Cells 1 /hpf Urine Mucus FEW /lpf Microscopic Urinalysis Comment CULT NOT INDICATED MDM Medical Decision Making Medical Screen Exam Complete: Yes Emergency Medical Condition: Yes Medical Record Reviewed: Yes Interpretation(s) CBC & BMP Diagram 07/06/17 11:15 Calcium Level 8.7, Magnesium Level 2.1 EKG shows sinus tachycardia but no sign of acute ischemia or arrhythmia read by me and attending. Troponin and CK-MB negative. UA negative. Last Impressions Chest X-Ray 07/06/17 1145 Signed Impressions: Service Date/Time: Thursday, July 06, 2017 12:28 - CONCLUSION: No acute disease. No significant change has occurred. Felix Gutierrez MD Differential Diagnosis PVCs versus palpitations versus ventricular tachycardia versus SVT versus sinus tachycardia versus PE Narrative Course 46-year-old female that presents to the ED for evaluation of palpitations and dizziness. Patient was properly examine also to have signs and symptoms consistent appears to be with sinus tachycardia. Labs and imaging were ordered. Patient was given IV fluids. There is no sign of SVT at this time. This was discussed in my attending Dr German who was made aware of findings and agrees with plan. Labs and imaging were essentially unremarkable. Patient's tachycardia appears to have improve on its own after IV fluids. Patient originally was here tachycardic on the 110s one 20s but now her heart rates in the 80s and 90s after 1 bolus of fluid. Unclear if this is related to anxiety or dehydration. Call has been placed to Dr. Solomon for further recommendations as to whether to start patient on higher dose of metoprolol or just follow-up outpatient. Case discussed with Dr. Aguiar who recommends keeping the patient on the same dose. I did spend some time speaking with the patient and I believe that she likely has anxiety and this might be a cause of her continuous palpitations and symptoms. I will give her a trial of Vistaril. She was told to continue taking the metoprolol follow with Dr. Aguiar. See ED if worsening symptoms. Patient agrees with this plan. All questions were answered to the best of my ability. Diagnosis Primary Impression: Tachycardia Additional Impression: Anxiety Patient Instructions: General Instructions Additional Instructions: Continue taking her metoprolol as prescribed by your doctor. Take medication as prescribed only as needed. Follow up with PCP. Follow with your general service technician next week. See ED if worsening symptoms. Med/Other Pt SpecificInfo: Prescription(s) given Scripts Hydroxyzine Pamoate (Vistaril) 50 Mg Cap 50 MG PO QID Y for ANXIETY, #20 CAP 0 Refills Prov: Jazmín Ruiz MD 07/06/17 Disposition: 01 DISCHARGE HOME Condition: Stable David Miranda Jul 06, 2017 12:38
--- NOTE | 2017-07-06 12:40 | RADRPT ---
EXAM DATE/TIME: 07/06/2017 12:28 [facility] COMPARISON: CHEST SINGLE AP, May 05, 2017, 22:50. INDICATIONS : Weakness, vertigo, chest pain, palpitations MEDICAL HISTORY : Cardiovascular disease. V-tach SURGICAL HISTORY : cadiac ablation ENCOUNTER: Initial ACUITY: 1 day PAIN SCORE: 3/10 LOCATION: Bilateral chest FINDINGS: A single view of the chest demonstrates the lungs to be symmetrically aerated without evidence of mas s, infiltrate or effusion. The cardiomediastinal contours are unremarkable. Osseous structures are intact. CONCLUSION: No acute disease. No significant change has occurred. Felix Gutierrez MD on July 06, 2017 at 12:38 Board Certified Radiologist. This report was verified electronically.
[2017-07-06 12:50] LABS: CREATINE KINASE 52 U/L (26-192)
[2017-07-06 14:38] VITALS: BP 131/83; PULSE 84; RESP 19; O2SAT 100
--- NOTE | 2017-07-06 16:19 | EKG ---
Date Performed: 07/06/2017 Time Performed: 11:37:37 PTAGE: 46 years EKG: SINUS TACHYCARDIA ABNORMAL RHYTHM ECG Since PREVIOUS TRACING , no significant change noted PREVIOUS TRACIN05/19/2017 11.26 DOCTOR: Esthela Coley Interpretating Date/Time 07/06/2017 16:18:17
[2017-07-06] MEDS ORDERED: VIST50CA PO (16:27)
== END 2017-07-06 16:40 | disposition home or self-care (01) ==
LOC: NEPE 11:18
DX: R00.0 Tachycardia, unspecified (principal); F41.9 Anxiety disorder, unspecified
CPT/HCPCS: 71010; 80048; 81001; 82550; 83735; 84443; 84484; 85025; 85379; 93005; 96360; 99285; J7030